=== PATIENT | male | born 1940 | race Caucasian/White ===

== ENCOUNTER 2018-04-18 03:40 | Inpatient (IN) | payer OTHER ==
[2018-04-18] MEDS ORDERED: MAGNE/ALUM HYDROXD 30 ML UCUP ONE (04:08)
[2018-04-18] MEDS ORDERED: LIDOCAINE VISCOUS 2% SOLN 15 ML UDC ONE (04:09)
[2018-04-18 04:25] LABS: Absolute Lymphocytes (CBC) 2.4 K/uL (0.7-4.9); Absolute Monocytes 0.9 K/uL (0.1-1.3); Absolute Neutrophil 6.1 K/uL (1.8-8.0); Basophils % 0.6 % (0-1.3); Hematocrit 45.9 % (39.6-49.0); Lymphocytes % 24.9 % (15.3-44.8); MCH 29.2 pg (27.0-35.0); MCV 86.8 fL (80-100); MPV 8.3 fL (7.6-11.3); Monocytes % 9.1 % (3.3-12.3); RBC Red Blood Cell Count 5.29 M/uL (4.33-5.43)
[2018-04-18 04:38] LABS: Potassium 3.7 mEq/L (3.6-5.0)
[2018-04-18 04:45] LABS: Bilirubin Direct 0.1 mg/dL (0-0.2); Bilirubin Total 0.5 mg/dL (0.3-1.2)
[2018-04-18] MEDS ORDERED: NA CHLORIDE 0.9% 500 ML ONE (05:25)
[2018-04-18 06:36] LABS: Urine Blood NEGATIVE (NEG); Urine Glucose NEGATIVE (NEG); Urine Protein NEGATIVE (NEG); Urine pH 5.5 (5.0-7.0)
[2018-04-18 06:45] LABS: Urine Bacteria NONE SEEN /HPF (NONE SEEN); Urine Culture Reflex Order NOT NEEDED; Urine RBC <5 /HPF (NONE SEEN)
--- NOTE | 2018-04-18 06:49 | EDPHYS ---
Physician Documentation [facility] Name: Azam Lee Age: 77 yrs Sex: Male : 1940 Arrival Date: 04/18/2018 Time: 03:41 Bed 8 Private MD: Blaire Mclaughlin F ED Physician Blayne Perez HPI: 04/18 04:18 This 77 yrs old Male presents to ER via Ambulatory with complaints of rn Abdominal Pain. 04:18 The patient presents with abdominal pain in the epigastric area. Onset: The rn symptoms/episode began/occurred 2 hour(s) ago. The symptoms do not radiate. Associated signs and symptoms: Pertinent negatives: nausea and vomiting, anorexia, blood in stools, chest pain, constipation, diarrhea, dysuria, fever, shortness of breath, vomiting, vomiting blood. The symptoms are described as achy. Severity of pain: At its worst the pain was moderate in the emergency department the pain has improved. The patient has not experienced similar symptoms in the past. Historical: - Allergies: 03:56 No Known Allergies; fc - Home Meds: 03:56 levothyroxine 50 mcg tab 1 tab once daily [Active]; amlodipine 5 mg tab 1 tab once fc daily [Active]; lisinopril-hydrochlorothiazide 20-12.5 mg oral tab 1 tab once daily [Active]; atorvastatin 80 mg oral tab 1 tab once daily [Active]; - PMHx: 03:56 High Cholesterol; Hypertension; Hypothyroidism; fc - PSHx: 03:56 Appendectomy; hand surg; fc - Immunization history:: Last tetanus immunization: up to date. - Social history:: Smoking status: Patient/guardian denies using tobacco, Patient/guardian denies using alcohol, street drugs. - Ebola Screening: : Patient negative for fever greater than or equal to 101.5 degrees Fahrenheit, and additional compatible Ebola Virus Disease symptoms Patient denies exposure to infectious person Patient denies travel to an Ebola-affected area in the 21 days before illness onset. - Family history:: not pertinent. - Hospitalizations: : No recent hospitalization is reported. ROS: 04:18 Constitutional: Negative for fever, chills, and weight loss, Eyes: Negative for injury, rn pain, redness, and discharge, Neck: Negative for injury, pain, and swelling, Cardiovascular: Negative for chest pain, palpitations, and edema, Respiratory: Negative for shortness of breath, cough, wheezing, and pleuritic chest pain, Abdomen/GI: + abd pain Back: Negative for injury and pain, MS/Extremity: Negative for injury and deformity, Skin: Negative for injury, rash, and discoloration, Neuro: Negative for headache, weakness, numbness, tingling, and seizure. Exam: 04:18 Constitutional: This is a well developed, well nourished patient who is awake, alert, rn and in no acute distress. Head/Face: Normocephalic, atraumatic. Eyes: Pupils equal round and reactive to light, extra-ocular motions intact. Lids and lashes normal. Conjunctiva and sclera are non-icteric and not injected. Cornea within normal limits. Periorbital areas with no swelling, redness, or edema. Cardiovascular: Regular rate and rhythm with a normal S1 and S2. No gallops, murmurs, or rubs. Normal PMI, no JVD. No pulse deficits. Respiratory: Lungs have equal breath sounds bilaterally, clear to auscultation and percussion. No rales, rhonchi or wheezes noted. No increased work of breathing, no retractions or nasal flaring. Abdomen/GI: soft, + epigastric and RUQ tenderness, no rebound, neg jones MS/ Extremity: Pulses equal, no cyanosis. Neurovascular intact. Full, normal range of motion. Equal circumference. Neuro: Awake and alert, GCS 15, oriented to person, place, time, and situation. Cranial nerves II-XII grossly intact. Motor strength 5/5 in all extremities. Sensory grossly intact. Vital Signs: 03:45 BP 172 / 81; Pulse 73; Resp 18; Temp 97.7(O); Pulse Ox 98% on R/A; Weight 90.72 kg (R); fc Height 6 ft. 0 in. (182.88 cm) (R); Pain 9/10; 05:12 BP 138 / 73; Pulse 61; Resp 18 S; Pulse Ox 94% on R/A; Pain 0/10; jd3 06:21 BP 159 / 76; Pulse 83; Resp 22 S; Temp 98.2(O); Pulse Ox 94% on R/A; Pain 0/10; bb 07:00 BP 162 / 90; Pulse 85; Resp 16 S; Temp 98.3(O); Pulse Ox 95% on R/A; Pain 0/10; aa5 07:30 BP 134 / 66; Pulse 70; Resp 16 S; Pulse Ox 95% on R/A; Pain 0/10; aa5 08:30 BP 125 / 70; Pulse 63; Resp 18 S; Pulse Ox 95% on R/A; Pain 0/10; aa5 09:20 BP 133 / 73; Pulse 60; Resp 16 S; Pulse Ox 98% on R/A; Pain 0/10; aa5 03:45 Body Mass Index 27.12 (90.72 kg, 182.88 cm) fc MDM: 03:43 Patient medically screened. rn 05:22 ED course: pain resolved. rn 06:48 Differential diagnosis: cholecystitis, Cholelithiasis, gastritis, gastroesophageal rn reflux disease. Data reviewed: vital signs, nurses notes, lab test result(s), radiologic studies, CT scan, and as a result, I will admit patient. Counseling: I had a detailed discussion with the patient and/or guardian regarding: the historical points, exam findings, and any diagnostic results supporting the discharge/admit diagnosis, lab results, radiology results, the need for further work-up and treatment in the hospital. Response to treatment: the patient's symptoms have markedly improved after treatment, and as a result, I will admit patient. Admission orders: after a detailed discussion of the patient's condition and case, the admit orders are written by me. 04/18 04:02 Order name: Basic Metabolic Panel; Complete Time: 05:18 04/18 04:02 Order name: CBC with Diff; Complete Time: 05:04/18 04:02 Order name: Creatinine for Radiology; Complete Time: 05:04/18 04:02 Order name: Hepatic Function; Complete Time: 05:18 04/18 04:02 Order name: Lipase; Complete Time: 05:18 04/18 04:02 Order name: Urine Microscopic Only; Complete Time: 06:46 04/18 04:02 Order name: CT Abd/Pelvis - W/Contrast rn 04/18 04:02 Order name: Troponin (emerg Dept Use Only); Complete Time: 05:18 04/18 06:27 Order name: Urine Dipstick--Ancillary (enter results); Complete Time: 06:38 oe 04/18 06:52 Order name: US Abdomen Limited fc 04/18 04:02 Order name: IV Saline Lock; Complete Time: 04:03 rn 04/18 04:02 Order name: Labs collected and sent; Complete Time: 04:05 rn 04/18 04:02 Order name: Urine Dipstick-Ancillary (obtain specimen); Complete Time: 06:24 rn 04/18 04:02 Order name: EKG; Complete Time: 04:03 rn 04/18 04:02 Order name: EKG - Nurse/Tech; Complete Time: 04:02 rn Administered Medications: 04:05 Drug: GI Cocktail without - (Maalox Suspension 30 ml, Lidocaine Liquid 2 % 15 bb ml) Route: PO; 05:22 Follow up: Response: No adverse reaction; Marked relief of symptoms jd3 05:28 Drug: NS 0.9% 500 ml Route: IV; Rate: bolus; Site: right antecubital; bb 06:22 Follow up: IV Status: Completed infusion; IV Intake: 500ml bb 06:51 CANCELLED (Duplicate Order): Rocephin - (cefTRIAXone) 1 grams IVPB once over 30 mins; fc (mix in 50 mL NS) 06:54 Drug: Flagyl 500 mg {Note: given by Rena ADAMS.} Volume: 100 ml; Route: IVPB; Rate: 200 jd3 ml/hr; Infused Over: 30 mins; Site: right antecubital; 07:15 Follow up: Response: No adverse reaction aa5 08:00 Follow up: Response: No adverse reaction; IV Status: Completed infusion aa5 06:54 Drug: Rocephin 1 grams {Note: given by Rena ADAMS.} Route: IV; Rate: calculated rate; jd3 Site: right antecubital; 07:00 Follow up: Response: No adverse reaction aa5 Disposition: 04/18/18 06:49 Hospitalization ordered by Blaire Mclaughlin for Inpatient Admission. Preliminary diagnosis is Cholecystitis, unspecified. - Bed requested for Telemetry/MedSurg (Inpatient). - Status is Inpatient Admission. aa5 - Condition is Stable. - Problem is new. - Symptoms have improved. UTI on Admission? No Signatures: Dispatcher [employer] Gina Moore RN RN dw Rita Cobb, RN RN fc Rena Love, RN RN bb Blayne Perez MD MD rn Calderon, Audri, RN RN aa5 Reginald Hernandez, RN RN jd3 Corrections: (The following items were deleted from the chart) 06:51 06:48 Rocephin - (cefTRIAXone) 1 grams IVPB once over 30 mins; (mix in 50 mL NS) fc ordered. rn 08:47 06:49 Hospitalization Ordered by Blaire Mclaughlin MD for Inpatient Admission. Preliminary dw diagnosis is Cholecystitis, unspecified. Bed requested for Telemetry/MedSurg (Inpatient). Status is Inpatient Admission. Condition is Stable. Problem is new. Symptoms have improved. UTI on Admission? No. rn 09:40 08:47 04/18/2018 06:49 Hospitalization Ordered by Blaire Mclaughlin MD for Inpatient aa5 Admission. Preliminary diagnosis is Cholecystitis, unspecified. Bed requested for Telemetry/MedSurg (Inpatient). Status is Inpatient Admission. Condition is Stable. Problem is new. Symptoms have improved. UTI on Admission? No. dw
--- NOTE | 2018-04-18 06:49 | ER ---
Nurse's Notes [facility] Name: Azam Lee Age: 77 yrs Sex: Male : 1940 Arrival Date: 04/18/2018 Time: 03:41 Bed 8 Private MD: Blaire Mclaughlin F Diagnosis: Cholecystitis, unspecified Presentation: 04/18 03:45 Presenting complaint: Patient states: that he was sleeping and at 0200 he was woke up fc by severe upper abd pain. Denies any nausea, vomiting or shortness of breath. Transition of care: patient was not received from another setting of care. Onset of symptoms was April 18, 2018 at 02:00. Risk Assessment: Do you want to hurt yourself or someone else? Patient reports no desire to harm self or others. Initial Sepsis Screen: Does the patient meet any 2 criteria? No. Patient's initial sepsis screen is negative. Does the patient have a suspected source of infection? No. Patient's initial sepsis screen is negative. Care prior to arrival: None. 03:45 Method Of Arrival: Ambulatory 03:45 Acuity: GERALDO 3 fc Historical: - Allergies: 03:56 No Known Allergies; fc - Home Meds: 03:56 levothyroxine 50 mcg tab 1 tab once daily [Active]; amlodipine 5 mg tab 1 tab once fc daily [Active]; lisinopril-hydrochlorothiazide 20-12.5 mg oral tab 1 tab once daily [Active]; atorvastatin 80 mg oral tab 1 tab once daily [Active]; - PMHx: 03:56 High Cholesterol; Hypertension; Hypothyroidism; fc - PSHx: 03:56 Appendectomy; hand surg; fc - Immunization history:: Last tetanus immunization: up to date. - Social history:: Smoking status: Patient/guardian denies using tobacco, Patient/guardian denies using alcohol, street drugs. - Ebola Screening: : Patient negative for fever greater than or equal to 101.5 degrees Fahrenheit, and additional compatible Ebola Virus Disease symptoms Patient denies exposure to infectious person Patient denies travel to an Ebola-affected area in the 21 days before illness onset. - Family history:: not pertinent. - Hospitalizations: : No recent hospitalization is reported. Screenin:45 Abuse screen: Denies threats or abuse. Nutritional screening: No deficits noted. fc Tuberculosis screening: No symptoms or risk factors identified. Fall Risk None identified. Assessment: 03:50 General: Appears in no apparent distress. Behavior is calm, cooperative. Pain: bb Complains of pain in right upper quadrant Pain does not radiate. Quality of pain is described as burning, Pain began suddenly, Is continuous. Neuro: Level of Consciousness is awake, alert, obeys commands, Oriented to person, place, time, situation. Cardiovascular: Heart tones S1 S2 present Capillary refill < 3 seconds Patient's skin is warm and dry. Pulses are palpable in right radial artery and left radial artery Edema is absent. Rhythm is sinus arrythmia. Respiratory: Airway is patent Respiratory effort is even, unlabored, Respiratory pattern is regular, Breath sounds are clear bilaterally. GI: Abdomen is round Bowel sounds present X 4 quads. Abd is soft X 4 quads Abdomen is tender to palpation in right upper quadrant Patient currently denies diarrhea, nausea, vomiting. Derm: Skin is pink, warm \T\ dry. Musculoskeletal: Circulation, motion, and sensation intact. 05:13 Reassessment: Patient appears in no apparent distress at this time. Patient and/or jd3 family updated on plan of care and expected duration. Pain level reassessed. Patient is alert, oriented x 3, equal unlabored respirations, skin warm/dry/pink. Patient states feeling better. 06:12 Reassessment: Patient and/or family updated on plan of care and expected duration. Pain bb level reassessed. pt to CT scan via stretcher accompanied by voip technician. 07:00 General: Appears comfortable, Behavior is calm, cooperative. Pain: Denies pain. Neuro: aa5 Level of Consciousness is awake, alert, obeys commands, Oriented to person, place, time, situation. Cardiovascular: Heart tones S1 S2 present Rhythm is regular. Respiratory: Airway is patent Respiratory effort is even, unlabored, Respiratory pattern is regular, symmetrical, Breath sounds are clear bilaterally. GI: Abdomen is round non-distended, Bowel sounds present X 4 quads. Abd is soft X 4 quads Abdomen is tender to palpation in right upper quadrant. : No signs and/or symptoms were reported regarding the genitourinary system. EENT: No signs and/or symptoms were reported regarding the EENT system. Derm: Skin is pink, warm \T\ dry. Musculoskeletal: Range of motion: intact in all extremities. 07:00 Reassessment: Pt notified of wait time for US to be completed and estimated wait for aa5 room assignment after US is completed. . 07:40 Reassessment: Patient and/or family updated on plan of care and expected duration. Pain aa5 level reassessed. Patient is alert, oriented x 3, equal unlabored respirations, skin warm/dry/pink. Patient denies pain at this time. 07:51 Reassessment: US at bedside . aa5 08:15 Reassessment: Patient and/or family updated on plan of care and expected duration. Pain aa5 level reassessed. Patient is alert, oriented x 3, equal unlabored respirations, skin warm/dry/pink. Patient denies pain at this time. 09:34 Reassessment: Patient is alert, oriented x 3, equal unlabored respirations, skin aa5 warm/dry/pink. Vital Signs: 03:45 BP 172 / 81; Pulse 73; Resp 18; Temp 97.7(O); Pulse Ox 98% on R/A; Weight 90.72 kg (R); fc Height 6 ft. 0 in. (182.88 cm) (R); Pain 9/10; 05:12 BP 138 / 73; Pulse 61; Resp 18 S; Pulse Ox 94% on R/A; Pain 0/10; jd3 06:21 BP 159 / 76; Pulse 83; Resp 22 S; Temp 98.2(O); Pulse Ox 94% on R/A; Pain 0/10; bb 07:00 BP 162 / 90; Pulse 85; Resp 16 S; Temp 98.3(O); Pulse Ox 95% on R/A; Pain 0/10; aa5 07:30 BP 134 / 66; Pulse 70; Resp 16 S; Pulse Ox 95% on R/A; Pain 0/10; aa5 08:30 BP 125 / 70; Pulse 63; Resp 18 S; Pulse Ox 95% on R/A; Pain 0/10; aa5 09:20 BP 133 / 73; Pulse 60; Resp 16 S; Pulse Ox 98% on R/A; Pain 0/10; aa5 03:45 Body Mass Index 27.12 (90.72 kg, 182.88 cm) ED Course: 03:41 Patient arrived in ED. am2 03:41 Blaire Mclaughlin MD is Private Physician. am2 03:43 Blayne Perez MD is Attending Physician. rn 03:45 Arm band placed on Patient placed in an exam room, on a stretcher. fc 03:45 Patient has correct armband on for positive identification. Placed in gown. Bed in low fc position. Call light in reach. quality assurance monitor on. Pulse ox on. NIBP on. 03:45 No provider procedures requiring assistance completed. fc 03:53 Triage completed. fc 03:55 Inserted saline lock: 20 gauge in right antecubital area, using aseptic technique. jd3 Blood collected. placed by Rena ADAMS. 04:03 EKG done, by ED staff, reviewed by Blayne Perez MD. jd3 04:23 Oral contrast given. eh 05:11 Rena Love RN is Primary Nurse. bb 05:29 Warm blanket given. jd3 06:[address] via stretcher. eh 06:11 CT completed. Patient tolerated procedure well. Patient moved back from CT. eh 06:16 CT Abd/Pelvis - W/Contrast In Process Unspecified. EDMS 06:49 Blaire Mclaughlin MD is Hospitalizing Provider. rn 07:44 Ultrasound completed. Patient tolerated well. ap2 09:35 Patient admitted, IV remains in place. aa5 Administered Medications: 04:05 Drug: GI Cocktail without - (Maalox Suspension 30 ml, Lidocaine Liquid 2 % 15 bb ml) Route: PO; 05:22 Follow up: Response: No adverse reaction; Marked relief of symptoms jd3 05:28 Drug: NS 0.9% 500 ml Route: IV; Rate: bolus; Site: right antecubital; bb 06:22 Follow up: IV Status: Completed infusion; IV Intake: 500ml bb 06:51 CANCELLED (Duplicate Order): Rocephin - (cefTRIAXone) 1 grams IVPB once over 30 mins; fc (mix in 50 mL NS) 06:54 Drug: Flagyl 500 mg {Note: given by Rena ADAMS.} Volume: 100 ml; Route: IVPB; Rate: 200 jd3 ml/hr; Infused Over: 30 mins; Site: right antecubital; 07:15 Follow up: Response: No adverse reaction aa5 08:00 Follow up: Response: No adverse reaction; IV Status: Completed infusion aa5 06:54 Drug: Rocephin 1 grams {Note: given by Rena ADAMS.} Route: IV; Rate: calculated rate; jd3 Site: right antecubital; 07:00 Follow up: Response: No adverse reaction aa5 Intake: 06:22 IV: 500ml; Total: 500ml. rosa Outcome: 06:49 Decision to Hospitalize by Provider. rn 09:34 Admitted to Med/surg accompanied by tech, via wheelchair, with chart, Report called to aa5 ANGIE Diaz 09:34 Condition: stable 09:34 Instructed on the need for admit, Demonstrated understanding of instructions. 09:40 Patient left the ED. aa5 Signatures: Dispatcher [employer] EDMS Wisam Flores Felicia RN RN Rena Noriega RN RN bb Nieto, Roman, MD MD rn Calderon, Audri, RN RN aa5 Moreno, Amanda am2 Davies, Jonathon, RN RN jd3 Pena, Abigail ap2 Corrections: (The following items were deleted from the chart) 04:03 04:03 EKG done, jroverto jd3 04:10 04:03 Inserted saline lock: 20 gauge in right antecubital area, using aseptic jd3 technique. Blood collected. placed by Rena de la rosa
[2018-04-18] MEDS ORDERED: CEFTRIAXONE/SWI 1gm 1 GM/10 ML SYR ONE (06:55)
[2018-04-18] MEDS ORDERED: METRONIDAZOLE 500mg IVPB 500 MG/100 ML BAG IV ONE (06:55)
--- NOTE | 2018-04-18 09:09 | EKG ---
Test Date: 2018-04-18 Test Time: 03:59:01 Asphalt Tile Floor Layer: SUSAN MEASUREMENT RESULTS: Intervals: Rate: 63 LA: 190 QRSD: 88 QT: 400 QTc: 409 [place]: P: 52 LA: 190 QRS: 34 T: 17 INTERPRETIVE STATEMENTS: Sinus rhythm with marked sinus arrhythmia Otherwise normal ECG Compared to ECG 02/07/2005 15:24:00 Sinus bradycardia no longer present Electronically Signed On 04-18-18 09:08:23 CDT by Giuseppe Montes De Oca
[2018-04-18] MEDS ORDERED: MORPHINE 4 MG/ML SYR IV PRN ×2 (11:05→15:11)
[2018-04-18] MEDS: D5 0.45 NS 1,000 ML IV SCH ×2 (11:05→18:18)
[2018-04-18] MEDS ORDERED: ONDANSETRON 4 MG/2 ML VIAL IV PRN (11:05)
--- NOTE | 2018-04-18 11:31 | RAD REPORT ---
EXAM DESCRIPTION: CT - Abdomen Pelvis W Contrast - 04/18/2018 7:10 am CLINICAL HISTORY: Abdominal pain. Right upper quadrant pain COMPARISON: None. TECHNIQUE: Computed axial tomography of the abdomen and pelvis was obtained. 100 cc Isovue-300 is ad ministered intravenously. Oral contrast was given.A preliminary report was generated by [employer] and reviewed prior to this dictation All CT scans are performed using dose optimization technique as appropriate and may include automated exposure control or mA/KV adjustment according to patient size. FINDINGS: the gallbladder wall is thickened with stranding within the adjacent fat. The liver, spleen, pancreas, and adrenals appear unremarkable. Small parapelvic renal cysts are prese nt. A thickened appendix is not seen. Diverticula stem from the colon without evidence of diverticulitis. A 3.1 centimeter infrarenal abdominal aneurysm is present. 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 The prostate gland is mildly enlarged. A right inguinal hernia contains fat Spondylosis involves lumbar spine resulting in spinal stenosis IMPRESSION: Gallbladder wall thickening with stranding within the adjacent fat probably indicating cholecystitis A 3.1 centimeter infrarenal abdominal aneurysm is present. 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
--- NOTE | 2018-04-18 11:32 | RAD REPORT ---
EXAM DESCRIPTION: US - Abdomen Exam Limited - 04/18/2018 8:08 am CLINICAL HISTORY: Abdominal pain. COMPARISON: None. FINDINGS: The gallbladder wall is thickened measuring 8 millimeters. . A gallstone is not seen. The biliary tree is normal caliber. IMPRESSION: Thickening of the gallbladder wall may indicate cholecystitis
--- NOTE | 2018-04-18 12:06 | P.HP ---
Date of Service: 04/18/18 PC:This 77-year-old male presented emergency room with severe right upper quadrant abdominal pain for diagnosis and treatment. HPC: Patient was woke up by a severe right upper quadrant abdominal pain early this morning. Pain was unrelenting. Describes it as severe, radiating into his back. Could not get relief and came to the emergency room for evaluation PMH: Hypertension, hypercholesterolemia PSHx: Previous appendectomy, hand surgery SOC: no known allergies, medications reviewed, also takes saw milena SYS REVIEW: No cough, wheeze, shortness of breath. No chest pain or palpitations. Has early signs of prostatism. Has some hesitancy, weak stream, and sense of urgency. Takes over the counter medication for this O/E awake alert comfortable at the moment HEENT: Not jaundiced Chest: Chest movement equal bilaterally ABD: mild tenderness in the right upper Quadrant LOCO: intact DATA: has documented gallstones IMPRESSION: acute cholecystitis with cholelithiasis PLAN: I will take him to the operating room for laparoscopic possible open cholecystectomy with intraoperative cholangiogram. The risks of this procedure have been discussed. The possibility of bleeding, and infection, injury to bile ducts blood vessels and intestines has been described. The possible need for an open and/or further surgeries and procedures have been discussed. The fact he may not be able to travel has also been explained. He understands and wants us to proceed. A
[2018-04-18] MEDS ORDERED: Ringers Lactate 1,000 ML IV ONE (12:43)
[2018-04-18] MEDS ORDERED: BUPIVACAINE 0.5% Inj,MDV 50 mL VIAL ONE (12:58)
[2018-04-18] MEDS ORDERED: SUCCINYLCHOLINE 20 MG/ML (10 ML) IV ONE (13:24)
[2018-04-18] MEDS ORDERED: FENTANYL CITR 250 MCG/5 ML ONE (13:27)
[2018-04-18] MEDS ORDERED: MIDAZOLAM HCL 2 MG/2 ML INJ ONE (13:27)
[2018-04-18] MEDS ORDERED: PROPOFOL 200 MG/20 ML VIAL IV ONE (13:27)
[2018-04-18] MEDS ORDERED: ROCURONIUM 50 MG/5 ML VIAL IV ONE (13:27)
[2018-04-18] MEDS ORDERED: GLYCOPYRROLATE 0.2 MG/ML SYR ONE (14:26)
[2018-04-18] MEDS ORDERED: NEOSTIGMINE 1 MG/ML -5 ML SYRINGE ONE (14:26)
--- NOTE | 2018-04-18 14:36 | P.OP ---
Preoperative diagnosis: acute on chronic cholecystitis with cholelithiasis he Postoperative diagnosis: The same Primary procedure: Laparoscopic cholecystectomy Secondary procedure: Cholangiogram Anesthesia: General Estimated blood loss: Less than 20 cc Specimen: 1 gallbladder and contents Operative Technique: The patient was brought to the operating room placed supine on the table. After the induction of adequate general endotracheal anesthesia, the area of the abdomen is prepped with a DuraPrep solution, and draped in the usual aseptic manner. A subumbilical incision was made. This brought down through the skin and subcutaneous tissue. The Visiport was used to enter the peritoneal cavity and created pneumoperitoneum to approximately 12 mm of mercury. Under direct vision a 5 mm trocar was placed in the upper midline, and 2 other 5 mm trocars on the right lateral side. The patient's head was then elevated and rolled towards the blanchard grinder operator's side. We could see a distended and inflamed gallbladder. The colon abutted up to the edge of the gallbladder. There were adhesions of the omentum to the gallbladder itself and the superior portion of the liver. These were taken down using blunt sharp dissection. We were now able to visualize the gallbladder.. A grasper was placed on the fundus of the gallbladder. Another 1 was placed down by Ankush's pouch. Applying lateral traction we were able to dissect and expose the cystic duct and artery. The fat in this area was very thin and friable. There was some small amount of bleeding in this area that was controlled using electro cautery and some judiciously placed clips. Having obtained the critical view structures were then identified. The artery was dealt with 1st. It was clipped and divided in the usual manner. A clip was then placed between the gallbladder and the cystic duct. An opening was made into the cystic duct. We attempted then to pass the cholangiocath into the cystic duct. Having place the catheter into the cystic duct, a cholangiogram was obtained under fluoroscopy. It showed good flow contrast into the duodenum, no filling defects were not detected. The catheter was then removed.. Clips were now placed on the distal portion of the cystic duct. The cystic duct was then divided. The gallbladder was now dissected free from the liver bed, placed into an Endo-Catch, and brought out through the umbilical trocar site. The gallbladder fossa was inspected to ensure adequate hemostasis. It was irrigated with a saline solution and the irrigant aspirated from the peritoneal cavity. 0.25% Marcaine was aerosolized into the right upper quadrant and the gallbladder fossa. The umbilical trocar site was now approximated with an Endo Close and an absorbable sutures. The patient does have an umbilical hernia in this area. We were able to partially close this defect however the hernia itself was left and can be addressed at a later time. The pneumoperitoneum was then collapsed, the suture tied, and best applied to the skin. A further 0.25% Marcaine was injected around are incision sites. At the end of the procedure the patient was in a stable condition when sent to the recovery room. Needle sponge instrument count were correct. 1 specimen was sent for histopathology.
[2018-04-18] MEDS ORDERED: NALOXONE 0.4 MG/ML VIAL ONE (14:37)
[2018-04-18] MEDS ORDERED: HYDROCODONE/APAP 7.5/325 MG TAB PO PRN (15:11)
--- NOTE | 2018-04-18 15:22 | RAD REPORT ---
EXAM DESCRIPTION: RADCholangiogram Oper-Xray Or04/18/2018 2:54 pm CLINICAL HISTORY: Abdominal pain FINDINGS: The examination was performed by Dr. Lemus. The cystic duct was cannulated and contrast administered. A spot intraoperative fluoroscopic image was obtained. Contrast flowed into the duodenum. The biliary tree is normal caliber without a filling defect seen.
[2018-04-18] MEDS ORDERED: METRONIDAZOLE 500mg IVPB 500 MG/100 ML BAG IV SCH (17:00)
--- NOTE | 2018-04-18 17:06 | PN ---
Subjective: A 77-year-old male presented to the emergency room with right upper quadrant pain. His workup showed acute cholecystitis. At this time, he went to the operating room. Past Medical History: As per Dr. Burr's history and physical. Social History: As per Dr. Burr's history and physical. Family History: As per Dr. Burr's history and physical. Medications: As per Dr. Burr's history and physical. Allergies: PER DR. BURR'S HISTORY AND PHYSICAL. Assessment And Plan: The patient's labs have been noted and the workup has been noted. We will care for him after his surgery for acute cholecystitis. KAMAR/MODJese Voice ID: [id number] Report ID: [id number]
[2018-04-19] MEDS: D5 0.45 NS 1,000 ML IV SCH (02:24)
[2018-04-19] MEDS ORDERED: CEFTRIAXONE/SWI 1gm 1 GM/10 ML SYR IV SCH (09:00)
--- NOTE | 2018-04-19 14:32 | PN ---
Subjective: The patient is doing well. He had his gallbladder removed with laparoscopy. He has no new complaints. He is passing gases and he tolerated liquid diet. Objective: Vital Signs: Blood pressure 145/65, pulse 58, temperature 98.1. Heart: Regular rate and rhythm. Chest: Clear to auscultation. Abdomen: Soft, benign. Bowel sounds are hypoactive, but heard. Neurological: Alert, oriented, nonfocal. Grossly intact. Assessment And Plan: Status post laparoscopic cholecystectomy for cholecystitis. The patient is rec overing well, tolerating p.o. intake. We will continue on liquid diet and his discharge is according to Surgery. If it is okay with them, we can go ahead and discharge the patient. MFS/MODL Voice ID: [id number] Report ID: [id number]
[2018-04-19] MEDS ORDERED: TAMSULOSIN 0.4 MG SR CAP PO SCH (21:00)
== END 2018-04-19 14:38 | disposition home or self-care (01) | DRG 419 ==
LOC: ER 03:40 → ERHOLD 06:55 → 2ND 09:34
PROVIDERS: ADMIT Internal Medicine; ATTEND Internal Medicine
PROC: 0FT44ZZ Resection of Gallbladder, Percutaneous Endoscopic Approach (ICD-10-PCS; principal; 2018-04-18 13:30)
DX: K80.12 Calculus of gallbladder with acute and chronic cholecystitis without obstruction (principal)
CPT/HCPCS: 36415; 74177; 74300; 76705; 80048; 80076; 81003; 81015; 83690; 84484; 85025; 88304; 93005; 96361; 96365; 96375; 99285; J0330; J0696; J2250; J2310; J2710; Q9967

== ENCOUNTER 2019-10-20 09:54 | Inpatient (IN) | payer OTHER ==
--- NOTE | 2019-10-20 10:54 | RAD REPORT ---
EXAM DESCRIPTION: RAD - Chest Single View - 10/20/2019 10:48 am CLINICAL HISTORY: shortness of breath Chest pain. COMPARISON: Chest Pa And Lat (2 Views) dated 02/03/2017; CHEST PA AND LAT 2 VIEW dated 04/29/2012; EDUARDO ST PA AND LAT 2 VIEW dated 10/03/2009; CHEST PA AND LAT 2 VIEW dated 02/07/2005 FINDINGS: Portable technique limits examination quality. The lungs are mildly emphysematous but grossly clear. The heart is normal in size. No displaced fract ures. IMPRESSION: No acute intrathoracic process suspected.
[2019-10-20] MEDS ORDERED: LEVALBUTEROL 1.25 MG/3 ML NEB ONE (10:58)
[2019-10-20 11:16] LABS: Basophils % 0.9 % (0-1.3); Hematocrit 42.7 % (39.6-49.0); Lymphocytes % 8.6 % (15.3-44.8); MPV 8.3 fL (7.6-11.3); RBC Red Blood Cell Count 4.97 M/uL (4.33-5.43)
[2019-10-20 11:18] LABS: Protime INR 1.09
[2019-10-20 11:30] LABS: Albumin 3.3 g/dL (3.4-5.0); Bilirubin Direct 0.2 mg/dL (0-0.2); Bilirubin Total 0.7 mg/dL (0.2-1.0); Magnesium 2.3 mg/dL (1.8-2.4); Potassium 3.6 mmol/L (3.5-5.1); Protein, Total 6.7 g/dL (6.4-8.2); Troponin (Emerg Dept Use Only) 0.04 ng/mL (0.0-0.045)
--- NOTE | 2019-10-20 12:21 | RAD REPORT ---
EXAM DESCRIPTION: CT - Chest For Pe Angio - 10/20/2019 12:01 pm CLINICAL HISTORY: sob COMPARISON: None. TECHNIQUE: Dynamically enhanced axial 3 mm thick images of the chest were obtained during administra tion of <100> mL Isovue 370 IV contrast. Coronal and oblique reconstruction images were generated and reviewed. Exam utilizes a protocol for optimal evaluation of pulmonary arterial tree. Maximum intensity projections 3D imaging was utilized All CT scans are performed using dose optimization technique as appropriate and may include automated exposure control or mA/KV adjustment according to patient size. FINDINGS: Thrombus is present within the distal left main pulmonary artery extending into left upper and left lower lobe pulmonary arteries. No thrombus noted within the main and right main pulmonary arteries. Thrombus is seen within the right upper lobe, right middle lobe and right lower lobe pulmonary arteri es. A thoracic aortic aneurysm is not noted. A pleural effusion is not seen. A pericardial effusion is not seen. 3.4 centimeter right lower lobe opacity extends to the pleura IMPRESSION: Moderately extensive bilateral pulmonary emboli 3.4 centimeter right lower lobe opacity may represent an infarct
[2019-10-20] MEDS ORDERED: ENOXAPARIN 100 MG/ML SYR SQ ONE (13:28)
--- NOTE | 2019-10-20 13:38 | ER ---
Nurse's Notes [facility] Name: Azam Lee Age: 79 yrs Sex: Male : 1940 Arrival Date: 10/20/2019 Time: 09:57 Bed 15 Private MD: Blaire Mclaughlin F Diagnosis: Pulmonary embolism;Hypoxia Presentation: 10/20 10:08 Presenting complaint: Patient states: Thursday just all of a sudden i couldn't walk up tw2 the stairs without getting short of breath, which is unusual, i can go maybe 100 feet and then i have to stop and take some deep breaths. Transition of care: patient was not received from another setting of care. Onset of symptoms was October 20, 2019. Risk Assessment: Do you want to hurt yourself or someone else? Patient reports no desire to harm self or others. Initial Sepsis Screen: Does the patient meet any 2 criteria? HR > 90 bpm. No. Patient's initial sepsis screen is negative. Does the patient have a suspected source of infection? No. Patient's initial sepsis screen is negative. Care prior to arrival: None. 10:08 Method Of Arrival: Ambulatory tw2 10:08 Acuity: GERALDO 2 tw2 10:17 Presenting complaint:. Note pt denies cough congestion. tw2 Triage Assessment: 10:17 General: Appears well groomed, Behavior is calm, cooperative, appropriate for age. tw2 Pain: Denies pain. Respiratory: Reports shortness of breath at rest on exertion Onset: The symptoms/episode began/occurred since Thursday, the patient has moderate shortness of breath. Historical: - Allergies: 10:16 No Known Allergies; tw2 - Home Meds: 10:16 amlodipine 5 mg tab 1 tab once daily [Active]; atorvastatin 80 mg Oral tab 1 tab once tw2 daily [Active]; levothyroxine 50 mcg tab 1 tab once daily [Active]; lisinopril-hydrochlorothiazide 20-12.5 mg Oral tab 1 tab once daily [Active]; Flomax 0.4 mg Oral cp24 1 cap once daily [Active]; - PMHx: 10:16 Hypothyroidism; Hypertension; High Cholesterol; tw2 - PSHx: 10:16 hand surg, right; Appendectomy; tw2 - Immunization history:: Adult Immunizations. - Social history:: Smoking status: . - Ebola Screening: : Patient denies travel to an Ebola-affected area in the 21 days before illness onset. Screenin:29 Abuse screen: Denies threats or abuse. Denies injuries from another. Nutritional bp screening: No deficits noted. Tuberculosis screening: No symptoms or risk factors identified. Fall Risk None identified. Assessment: 10:28 General: SEE TRIAGE NOTE. Cardiovascular: Rhythm is sinus rhythm. Respiratory: Airway bp is patent Respiratory effort is even, labored, Breath sounds are coarse bilaterally. 11:02 Reassessment: ALL CURRENT ORDERS COMPLETED, RESULTS PENDING. bp 11:15 Reassessment: D-DIMER >440, PROVIDER NOTIFIED. bp 11:45 Reassessment: PT TO CT WITH TRAVELING ACCOUNTANT. bp 13:30 Reassessment: ADMIT IN PROCESS. bp 14:48 Reassessment: PT RETURNED FROM U/S. bp Vital Signs: 10:11 BP 123 / 75; Pulse 99; Resp 19; Temp 98.8(TE); Pulse Ox 89% on R/A; Weight 89.36 kg tw2 (R); Height 6 ft. 0 in. (182.88 cm); Pain 0/10; 11:01 BP 127 / 66; Pulse 90; Resp 20; Pulse Ox 98% on 10% Nebulizer Mask; bp 12:00 BP 126 / 63; Pulse 97; Resp 16; Pulse Ox 91% ; bp 13:00 BP 143 / 78; Pulse 103; Resp 18; Pulse Ox 90% on 2 lpm NC; bp 14:30 BP 158 / 73; Pulse 107; Resp 19; Temp 97.8; Pulse Ox 92% on 3 lpm NC; bp 10:11 Body Mass Index 26.72 (89.36 kg, 182.88 cm) tw2 10:11 pt placed on o2 via nc at 2L, at this time, 96% tw2 ED Course: 09:57 Patient arrived in ED. mr 09:57 Blaire Mclaughlin MD is Private Physician. mr 10:11 Triage completed. tw2 10:16 Arm band placed on. tw2 10:22 Markus Herrera PA is PHCP. [place] 10:22 Ron Velazquez MD is Attending Physician. jmm 10:28 Pedro Balderas, ANGIE is Primary Nurse. bp 10:29 Patient has correct armband on for positive identification. Bed in low position. Call bp light in reach. Side rails up X2. 10:51 EKG done, by quality control lab technician. reviewed by Markus ALFREDO. at1 10:54 XRAY Chest (1 view) In Process Unspecified. EDMS 10:59 Inserted saline lock: 20 gauge in right forearm, using aseptic technique. Blood bp collected. 11:00 Initial lab(s) drawn, by me, sent to lab. First set of blood cultures drawn by me. em1 11:26 Notified ED physician of a critical lab result(s). D-Dimer 7440. tw2 12:09 CT Chest For PE Angio In Process Unspecified. EDMS 13:36 Blaire Mclaughlin MD is Hospitalizing Provider. m 14:48 No provider procedures requiring assistance completed. Patient admitted, IV remains in bp place. Administered Medications: 11:00 Drug: Xopenex (3) 1.25 mg Route: Inhalation; bp 13:30 Drug: Lovenox 1 mg/kg Route: Sub-Q; Site: right lower abdomen; bp 14:12 Follow up: Response: No adverse reaction bp Outcome: 13:37 Decision to Hospitalize by Provider. jmm 14:37 Patient left the ED. ss 14:53 Admitted to Tele accompanied by tech, via wheelchair, room 201, with oxygen, with bp chart, Report called to BHARATI ADAMS 14:53 Condition: stable 14:53 Instructed on the need for admit. 15:01 Patient left the ED. bp Signatures: Dispatcher [employer] EDMS Markus Herrera PA PA jmm Yesica Esteves James em1 Blossom Lucas, RN RN ss Elinor Kumar, business office manager EKG Tat1 Smitha Waggoner, RN RN tw2 Pedro Balderas, RN RN bp Corrections: (The following items were deleted from the chart) 10:17 10:11 BP 123 / 75; Pulse 99bpm; Resp 19bpm; Pulse Ox 89% RA; Temp 98.8F Temporal; 89.36 tw2 kg Reported; Height 6 ft. 0 in.; BMI: 26.7; Pain 0/10; pt placed on o2 via nc at 2L, at this time.; tw2 10:52 10:08 Initial Sepsis Screen: Does the patient meet any 2 criteria? No. Patient's bp initial sepsis screen is negative. Does the patient have a suspected source of infection? No. Patient's initial sepsis screen is negative. tw2
--- NOTE | 2019-10-20 13:38 | EDPHYS ---
Physician Documentation [facility] Name: Azam Lee Age: 79 yrs Sex: Male : 1940 Arrival Date: 10/20/2019 Time: 09:57 Bed 15 Private MD: Blaire Mclaughlin F ED Physician Ron Velazquez HPI: 10/20 10:35 This 79 yrs old Male presents to ER via Ambulatory with complaints of jmm Shortness Of Breath. 10:35 The patient has shortness of breath with light activity. Onset: The symptoms/episode jmm began/occurred gradually, 2 day(s) ago. Duration: The symptoms are continuous. The patient's shortness of breath is aggravated by exertion. Associated signs and symptoms: Pertinent negatives: chest pain, non-productive cough, productive cough, diaphoresis, dizziness, fever, hemoptysis, loss of consciousness, numbness in extremities, vomiting. This is a 79 year old male with a history of hypothyroidism, htn, hlp that presents to the ED with complaints of shortness of breath on exertion. Symptoms began this past Thursday. Denies fever, chest pain. Historical: - Allergies: 10:16 No Known Allergies; tw2 - Home Meds: 10:16 amlodipine 5 mg tab 1 tab once daily [Active]; atorvastatin 80 mg Oral tab 1 tab once tw2 daily [Active]; levothyroxine 50 mcg tab 1 tab once daily [Active]; lisinopril-hydrochlorothiazide 20-12.5 mg Oral tab 1 tab once daily [Active]; Flomax 0.4 mg Oral cp24 1 cap once daily [Active]; - PMHx: 10:16 Hypothyroidism; Hypertension; High Cholesterol; tw2 - PSHx: 10:16 hand surg, right; Appendectomy; tw2 - Immunization history:: Adult Immunizations. - Social history:: Smoking status: . - Ebola Screening: : Patient denies travel to an Ebola-affected area in the 21 days before illness onset. ROS: 10:35 Constitutional: Negative for fever, chills, and weight loss, Cardiovascular: Negative jmm for chest pain, palpitations, and edema. 10:35 Abdomen/GI: Negative for abdominal pain, nausea, vomiting, diarrhea, and constipation, Back: Negative for injury and pain, Neuro: Negative for headache, weakness, numbness, tingling, and seizure. 10:35 Respiratory: Positive for shortness of breath. 10:35 All other systems are negative. Exam: 10:35 Constitutional: This is a well developed, well nourished patient who is awake, alert, jmm and in no acute distress. Head/Face: atraumatic. Eyes: EOMI, no conjunctival erythema appreciated ENT: Moist Mucus Membranes Neck: Trachea midline, Supple Chest/axilla: Normal chest wall appearance and motion. 10:35 Abdomen/GI: Non distended, soft Back: Normal ROM Skin: General appearance color normal MS/ Extremity: Moves all extremities, no obvious deformities appreciated, no edema noted to the lower extremities Neuro: Awake and alert, normal gait Psych: Behavior is normal, Mood is normal, Patient is cooperative and pleasant 10:35 Cardiovascular: Rate: normal, Rhythm: regular, Pulses: no pulse deficits are appreciated. 10:35 Respiratory: the patient does not display signs of respiratory distress, Respirations: normal, Breath sounds: are clear throughout. Vital Signs: 10:11 BP 123 / 75; Pulse 99; Resp 19; Temp 98.8(TE); Pulse Ox 89% on R/A; Weight 89.36 kg tw2 (R); Height 6 ft. 0 in. (182.88 cm); Pain 0/10; 11:01 BP 127 / 66; Pulse 90; Resp 20; Pulse Ox 98% on 10% Nebulizer Mask; bp 12:00 BP 126 / 63; Pulse 97; Resp 16; Pulse Ox 91% ; bp 13:00 BP 143 / 78; Pulse 103; Resp 18; Pulse Ox 90% on 2 lpm NC; bp 14:30 BP 158 / 73; Pulse 107; Resp 19; Temp 97.8; Pulse Ox 92% on 3 lpm NC; bp 10:11 Body Mass Index 26.72 (89.36 kg, 182.88 cm) tw2 10:11 pt placed on o2 via nc at 2L, at this time, 96% tw2 MDM: 10:27 Patient medically screened. [facility] 13:35 Data reviewed: vital signs, nurses notes. Counseling: I had a detailed discussion with [facility] the patient and/or guardian regarding: the historical points, exam findings, and any diagnostic results supporting the discharge/admit diagnosis, lab results, radiology results, the need for further work-up and treatment in the hospital. ED course: I discussed the patient with Dr. Lomas whom accepted admission. . 10/20 10:33 Order name: Basic Metabolic Panel; Complete Time: 11:31 [facility] 10/20 10:33 Order name: CBC with Diff; Complete Time: 11:31 [facility] 10/20 10:33 Order name: LFT's; Complete Time: 11:39 [facility] 10/20 10:33 Order name: Magnesium; Complete Time: 11:39 [facility] 10/20 10:33 Order name: NT PRO-BNP; Complete Time: 11:39 [facility] 10/20 10:33 Order name: PT-INR; Complete Time: 11:31 [facility] 10/20 10:33 Order name: Troponin (emerg Dept Use Only); Complete Time: 11:39 [facility] 10/20 10:33 Order name: XRAY Chest (1 view); Complete Time: 11:10 [facility] 10/20 10:33 Order name: D-Dimer; Complete Time: 11:31 [facility] 10/20 10:34 Order name: Blood Culture Adult (2) [facility] 10/20 13:46 Order name: Basic Metabolic Panel [facility] 10/20 13:46 Order name: Basic Metabolic Panel [facility] 10/20 13:46 Order name: CBC with Automated Diff [facility] 10/20 13:46 Order name: CBC with Automated Diff [facility] 10/20 10:33 Order name: EKG; Complete Time: 10:35 [facility] 10/20 10:33 Order name: Cardiac monitoring; Complete Time: 10:51 [facility] 10/20 10:33 Order name: EKG - Nurse/Tech; Complete Time: 11:00 [facility] 10/20 10:33 Order name: IV Saline Lock; Complete Time: 11:00 [facility] 10/20 10:33 Order name: Labs collected and sent; Complete Time: 11:00 [facility] 10/20 10:33 Order name: O2 Per Protocol; Complete Time: 10:51 [facility] 10/20 10:33 Order name: O2 Sat Monitoring; Complete Time: 10:51 [facility] 10/20 11:32 Order name: CT Chest For PE Angio; Complete Time: 13:17 [facility] 10/20 13:35 Order name: US Extremity Venous W Compression Ronald [facility] 10/20 13:46 Order name: Heart Healthy EDME 10/20 13:46 Order name: Echo with Doppler EDME 10/20 14:55 Order name: EDME Administered Medications: 11:00 Drug: Xopenex (3) 1.25 mg Route: Inhalation; bp 13:30 Drug: Lovenox 1 mg/kg Route: Sub-Q; Site: right lower abdomen; bp 14:12 Follow up: Response: No adverse reaction bp Disposition: 15:57 Co-signature as Attending Physician, Ron Velazquez MD I agree with the assessment and kdr plan of care. Disposition: 10/20/19 13:37 Hospitalization ordered by Blaire Mclaughlin for Inpatient Admission. Preliminary diagnosis are Pulmonary embolism, Hypoxia. - Bed requested for Telemetry/MedSurg (Inpatient). - Status is Inpatient Admission. bp - Condition is Stable. - Problem is new. - Symptoms have improved. UTI on Admission? No Signatures: Dispatcher [employer] [facility] Ron Velazquez MD MD [facility] Markus Herrera PA PA jmm Smirch, Shelby, RN RN Smitha Waggoner RN RN 2 Pedro Balderas RN RN Emilee Henderson Corrections: (The following items were deleted from the chart) 13:44 13:37 Hospitalization Ordered by Blaire Mclaughlin MD for Inpatient Admission. Preliminary eb diagnosis is Pulmonary embolism; Hypoxia. Bed requested for Telemetry/MedSurg (Inpatient). Status is Inpatient Admission. Condition is Stable. Problem is new. Symptoms have improved. UTI on Admission? No. amandeep 14:10 13:44 10/20/2019 13:37 Hospitalization Ordered by Blaire Mclaughlin MD for Inpatient eb Admission. Preliminary diagnosis is Pulmonary embolism; Hypoxia. Bed requested for Telemetry/MedSurg (Inpatient). Status is Inpatient Admission. Condition is Stable. Problem is new. Symptoms have improved. UTI on Admission? No. eb 14:37 14:10 10/20/2019 13:37 Hospitalization Ordered by Blaire Mclaughlin MD for Inpatient ss Admission. Preliminary diagnosis is Pulmonary embolism; Hypoxia. Bed requested for Telemetry/MedSurg (Inpatient). Status is Inpatient Admission. Condition is Stable. Problem is new. Symptoms have improved. UTI on Admission? No. eb 15:01 14:37 10/20/2019 13:37 Hospitalization Ordered by Blaire Mclaughlin MD for Inpatient bp Admission. Preliminary diagnosis is Pulmonary embolism; Hypoxia. Bed requested for Telemetry/MedSurg (Inpatient). Status is Inpatient Admission. Condition is Stable. Problem is new. Symptoms have improved. UTI on Admission? No. ss
[2019-10-20] MEDS ORDERED: ONDANSETRON 4 MG/2 ML VIAL IV PRN (13:40)
[2019-10-20] MEDS ORDERED: ACETAMINOPHEN 500 MG TAB PO PRN (13:40)
--- NOTE | 2019-10-20 14:41 | RAD REPORT ---
EXAM DESCRIPTION: US - Extrem Venous W Compress Ronald - 10/20/2019 2:35 pm CLINICAL HISTORY: PE Bilateral leg edema and swelling. COMPARISON: Chest For Pe Angio dated 10/20/2019 TECHNIQUE: Real-time sonographic interrogation of the left and right lower extremity deep venous sys tems was performed. FINDINGS: Thrombus is present in the right deep venous system from the femoral vein to the popliteal vein. No left-sided DVT evident. IMPRESSION: Positive for right-sided acute DVT.
--- NOTE | 2019-10-20 14:55 | EKG ---
Test Date: 2019-10-20 Test Time: 10:46:17 Fire Support Specialist: MICHELLE MEASUREMENT RESULTS: Intervals: Rate: 85 OK: 188 QRSD: 88 QT: 382 QTc: 454 [place]: P: 57 OK: 188 QRS: 56 T: 26 INTERPRETIVE STATEMENTS: Normal sinus rhythm Normal ECG Compared to ECG 04/18/2018 03:59:01 Sinus arrhythmia no longer present Electronically Signed On 10-20-19 14:55:00 WHEAT CLEANER by Giuseppe Montes De Oca
[2019-10-20 15:17] VITALS: BMI 26.7
[2019-10-20] MEDS ORDERED: ENOXAPARIN 100 MG/ML SYR SQ SCH (16:00)
[2019-10-20] MEDS: TAMSULOSIN 0.4 MG SR CAP PO SCH (20:37)
[2019-10-20] MEDS ORDERED: AMLODIPINE 5 MG TAB PO SCH (21:00)
[2019-10-20] MEDS: ATORVASTATIN 80 MG TAB PO SCH (21:31)
[2019-10-20] MEDS: LEVOTHYROXINE SOD 0.05 MG TABLET PO SCH (21:31)
--- NOTE | 2019-10-21 04:35 | HP ---
Date of Admission: 10/20/2019 History Of Present Illness: A -[id number] male, who presented to me with history of shortnes s of breath that had been about 3 days ago, which was acute for him happened all of a sudden. The pa noy states that he walked 20 to 25 feet. He was started getting short of breath which is very unus ual for him. He did not have any chest pain. No nausea, no vomiting. He voiced no other complaints . He gave history that he recently came back from a long flight from [place]. Review of Systems: Respiratory: As above. Cardiovascular: No complaints. Genitourinary: No complaints. Cardiovascular: No complaints. Gastrointestinal: No complaints. Neurological: No complaint. Past Medical History: 1.Hypertension. 2.Hypothyroidism. 3.Hyperlipidemia. 4.Chronic renal insufficiency from hypertension. 5.Erectile dysfunction. Social History: No smoking, alcohol, or IV drug abuse history. Family History: Noncontributing. Medications: Patient is on levothyroxine 50 mcg p.o. daily, Flomax 0.4 mg p.o. daily, lisinopril/hyd rochlorothiazide 20/12.5 mg p.o. daily, Cialis 20 mg p.o. daily p.r.n., amlodipine 5 mg p.o. daily, L ipitor, Atorvastatin 80 mg p.o. daily. Allergies: NO KNOWN DRUG ALLERGIES. Physical Examination: Vital Signs: Blood pressure 158/73, pulse 107, temperature 97.8. Heart: Regular rate and rhythm. Chest: Clear to auscultation. Abdomen: Soft, nontender. No hepatosplenomegaly. Bowel sounds are normoactive. Extremities: No edema. No cyanosis. Peripheral pulses are felt. Neurological: Alert and oriented, nonfocal. Grossly intact. Diagnostic Data: Chest x-ray, no acute intrathoracic process; however, his chest CAT scan showed mod erately extensive bilateral pulmonary emboli 3.4 cm right lower lobe opacity, may represent an infarc t. Vascular study on his lower extremities positive for right-sided acute DVT in the femoral vein. Electrocardiogram, normal sinus rhythm. CBC; white cell count 11.8, the rest is noted. PT/INR noted . D-dimer 7440. Chemistry, chloride 110, BUN 24, creatinine 1.27. GFR 55; glucose 151, this is non fasting. Alkaline phosphatase 118. BNP 1585. Albumin 3.3. Assessment And Plan: Acute deep vein thrombosis with acute pulmonary embolism, extensive. Patient i s being admitted because he had hypoxia also by pulse oximetry, so put him on oxygen protocol. Put h im on Lovenox 90 mg subcutaneous daily. We will continue his home medicines for chronic medical illn esses. Put the patient on telemetry and we will measure his pulse oximetry and once his room air pul se oximetry symptoms improved, we will consider discharging him. Meanwhile, follow up also his blood count and put him on his home medications as mentioned. Look orders for details. KAMAR/MODL Voice ID: [id number]
[2019-10-21 05:58] LABS: Potassium 3.8 mmol/L (3.5-5.1)
[2019-10-21] MEDS ORDERED: LEVOTHYROXINE SOD 0.05 MG TABLET PO SCH (06:00)
[2019-10-21 06:05] LABS: Absolute Lymphocytes (CBC) 1.5 K/uL (0.7-4.9); Basophils % 0.5 % (0-1.3); Hematocrit 37.2 % (39.6-49.0); MPV 8.4 fL (7.6-11.3); RBC Red Blood Cell Count 4.37 M/uL (4.33-5.43)
[2019-10-21] MEDS: RIVAROXABAN 15 MG TABLET PO SCH ×2 (08:37→21:04)
[2019-10-21] MEDS ORDERED: hydroCHLOROthiazide 12.5 MG CAP PO SCH (09:00)
[2019-10-21] MEDS ORDERED: ENOXAPARIN 100 MG/ML SYR SQ SCH (09:00)
[2019-10-21] MEDS ORDERED: ATORVASTATIN 80 MG TAB PO SCH (09:00)
[2019-10-21] MEDS ORDERED: HOME MED 1 EA UNK (Lisinopril/Hydrochlorothiazide [Lisinopril-Hctz 20-12.5 Mg Tab] 1 TAB) PO SCH (09:00)
[2019-10-21] MEDS ORDERED: lisinopriL 20 MG TAB PO SCH (09:00)
--- NOTE | 2019-10-21 09:58 | P.CNS ---
Date of Consult: 10/21/19 Reason for Consult: Shortness of breath Chief Complaint: Pulmonary emboli History of Present Illness: Patient is 79 years of age with a recent history of travel to [place] S developed sudden onset of shortness of breath for the past 2 days came into the emergency room was diagnosed to have bilateral pulmonary emboli and right-sided DVT there is no prior history of cardiopulmonary problems before history of hypertension otherwise his baseline he does really well Allergies No Known Allergies Allergy (Verified 10/20/19 15:30) Home Medications: Amlodipine Besylate 1 tab PO BEDTIME 04/18/18 Atorvastatin Calcium [Lipitor] 80 mg PO DAILY 04/18/18 Levothyroxine [Synthroid] 50 mcg PO [id number] 04/18/18 Lisinopril/Hydrochlorothiazide [Lisinopril-Hctz 20-12.5 mg Tab] 1 tab PO DAILY 04/18/18 Tamsulosin [Flomax*] 1 cap PO BEDTIME 10/20/19 - Past Medical/Surgical History Diabetic: No -: pneumonia -: high cholesterol -: hypertension -: hypothyroidism -: bph -: appendectomy -: hand sx - Family History Father Medical History: Lung disease Mother Medical History: Lung disease - Social History Alcohol use: Yes CD- Drugs: No Caffeine use: Yes Place of Residence: Home Review of Systems 10-point ROS is otherwise unremarkable Physical Examination Temp Pulse Resp BP Pulse Ox 98.9 F 78 21 H 129/60 93 10/21/19 08:00 10/21/19 08:37 10/21/19 08:00 10/21/19 08:37 10/21/19 08:00 General: Alert, Oriented x3 HEENT: Atraumatic Neck: Supple Respiratory: Clear to auscultation bilaterally, Diminished Cardiovascular: No edema, Regular rate/rhythm, Normal S1 S2 Gastrointestinal: Normal bowel sounds, Soft and benign, Non-distended Laboratory Data (last 24 hrs) 10/20/19 11:00: PT 12.8 H, INR 1.09 10/20/19 11:00: WBC 11.8 H, Hgb 14.3, Hct 42.7, Plt Count 182 10/20/19 11:00: Sodium 142, Potassium 3.6, BUN 24 H, Creatinine 1.27, Glucose 151 H, Magnesium 2.3, Total Bilirubin 0.7, AST 10 L, ALT 21, Alkaline Phosphatase 118 H - Problems (1) Pulmonary embolism and infarction Current Visit: Yes Status: Acute Plan: Patient is 79 years of age admitted with DVT and pulmonary emboli as currently stable vital signs are stable was hypoxic on admission will recheck is room-air pulse ox agree with Xarelto far now if he continues to remain in a hypoxic may have to consider thrombolytics therapy will check 2D echo the pressure is stable patient is on 3 blood pressure pills I have held the hydrochlorothiazide and Norvasc
--- NOTE | 2019-10-21 12:21 | ECHO ---
HEIGHT: 6 ft 0 in WEIGHT: 197 lb 0 oz DATE OF STUDY: 10/21/[address]: Blaire Mclaughlin MD 2-DIMENSIONAL: YES M.MODE: YES DOPPLER: YES COLOR FLOW: YES TDS: PORTABLE: DEFINITY: BUBBLE STUDY: DIAGNOSIS: PULMONARY EMBOLISM CARDIAC HISTORY: CATHERIZATION: NO SURGERY: NO PROSTHETIC VALVE: NO PACEMAKER: NO MEASUREMENTS (cm) DIASTOLIC (NORMALS) SYSTOLIC (NORMALS) IVSd 1.1 (0.6-1.2) LA Diam 3.0 (1.9-4.0) LVEF 56% LVIDd 5.2 (3.5-5.7) LVIDs 3.6 (2.0-3.5) %FS 29% LVPWd 1.2 (0.6-1.2) Ao Diam 2.9 (2.0-3.7) 2 DIMENSIONAL ASSESSMENT: RIGHT ATRIUM: NORMAL LEFT ATRIUM: NORMAL RIGHT VENTRICLE: NORMAL LEFT VENTRICLE: NORMAL TRICUSPID VALVE: NORMAL MITRAL VALVE: NORMAL PULMONIC VALVE: NORMAL AORTIC VALVE: NORMAL PERICARDIAL EFFUSION: NONE AORTIC ROOT: NORMAL LEFT VENTRICULAR WALL MOTION: NORMAL DOPPLER/COLOR FLOW: MILD TRICUSPID REGURGITATION COMMENTS: MILD TRICUSPID REGURGITATION. NORMAL RIGHT SYSTOLIC PRESSURE. NORMAL LEFT VENTRICULAR SIZE AND FUNCTION. NO WALL MOTION ABNORMALITY. NO EFFUSION. TECHNOLOGIST: CAN VARGAS
--- NOTE | 2019-10-21 17:28 | RAD REPORT ---
EXAM DESCRIPTION: CT - Abdomen Pelvis W Contrast - 10/21/2019 4:48 pm CLINICAL HISTORY: FEVER , PAIN COMPARISON: CT abdomen and pelvis April 2018, CT chest October 20, 2019 TECHNIQUE: Biphasic, helical CT imaging of the abdomen and pelvis was performed following 100 ml non -ionic IV contrast. Oral contrast was given. All CT scans are performed using dose optimization technique as appropriate and may include automated exposure control or mA/KV adjustment according to patient size. FINDINGS: No new lung base finding. Patient has known pulmonary embolic disease with stranding in th e lung bases. No pericardial thickening or effusion. The liver, spleen, and pancreas show no suspicious findings. Cholecystectomy clips are present. No bi liary tree dilatation. Symmetric renal function is seen with no hydronephrosis or suspicious renal mass. No pyelonephritis o r acute parenchymal process. No bladder abnormalities. Prostate gland is prominent. No adrenal abnorm alities. Minimal hiatal hernia is present. No acute gastric wall thickening or mass. No acute small bowel find ing. Patient has a tortuous and redundant sigmoid colon. This extends up to the supraumbilical midlin e abdomen. There is no acute diverticulitis present. There is prominent diverticulosis. An acute colo n process is not identifiable. No free air, free fluid or inflammatory stranding. Very small periumbilical hernia is present with no acute finding. Moderately large right inguinal hernia is present with no congested or edematous f at. No bowel involvement at this time. Disc and bony degenerative changes are present. Spinal stenosis is present at L3-4. Foraminal encroac hment present at L3-4, L4-5 and L5-S1. Prominent aortic calcifications are present. Infrarenal aorta dilates to 3.2 cm. No displaced calcifi cation. This is not substantially different from April 2018. Left common iliac artery is dilated to 15 mm. 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 IMPRESSION: Patient has very prominent diverticulosis within a tortuous and redundant sigmoid colon. No mass or diverticulitis seen. No pyelonephritis or acute renal parenchymal process. No urinary bladder abnormality seen. No abnormality seen as a source for fever or acute pain. Additional nonacute findings detailed in the body of the report.
--- NOTE | 2019-10-21 18:40 | P.PN ---
Subjective Date of Service: 10/21/19 Chief Complaint: Pulmonary emboli Subjective: Improving MR. WELLS CAME BACK FROM [place] AFTER A LONG FLIGHT ABOUT 3 WEEKS AGO. HE STARTED TO HAVE DYSPNEA AND REPORTED TO DR. BOONE ON HIS ROUTINE APT TWO DAYS AGO. HE WAS SENT TO ER AND WAS FOUND TO HAVE PE DIFFUSELY. HE ALSO HAS R LEG DVT. HE WAS GIVEN A DOSE OF LOVENOX AND THIS AM I CHANGED IT TO XARELTO BID. I ALSO ORDERED CT ABDOMEN THAT SHOWS NO SIGNS OF CANCER. Review of Systems 10-point ROS is otherwise unremarkable General: Weakness, Malaise Respiratory: Shortness of Breath Physical Examination - Vital Signs Temperature: 98.1 F Blood Pressure: 121/67 Pulse: 69 Respirations: 20 Pulse Ox (%): 93 - Physical Exam General: Mild distress HEENT: Atraumatic, PERRLA, EOMI Neck: Supple, JVD not distended Respiratory: Clear to auscultation bilaterally, Normal air movement Cardiovascular: Regular rate/rhythm, Normal S1 S2 Gastrointestinal: Normal bowel sounds, No tenderness Musculoskeletal: No tenderness Integumentary: No rashes Neurological: Normal speech, Normal tone, Normal affect Lymphatics: No axilla or inguinal lymphadenopathy - Studies Medications List Reviewed: Yes Assessment And Plan - Current Problems (Diagnosis) (1) HTN (hypertension) with goal to be determined Current Visit: Yes Status: Chronic Plan: BP IS STABLE. HE IS FOLLOWED BY DR BOONE PCP. (2) Pulmonary embolism and infarction Current Visit: Yes Status: Acute Plan: PROVOKED PE. NO SIGNS OF SECONDARY FACTORS. XARELTO BID FOR 3 WEEKS FOLLOWED BY XARELTO 20 MG PO DAILY FOR 3-6 MONTHS. PROGNOSIS FAIR. OXYGEN CHECK DAILY. DC IN AM POSSIBLE.
[2019-10-21] MEDS: ATORVASTATIN 80 MG TAB PO SCH (21:04)
[2019-10-21] MEDS: LEVOTHYROXINE SOD 0.05 MG TABLET PO SCH (21:04)
[2019-10-21] MEDS: TAMSULOSIN 0.4 MG SR CAP PO SCH (21:04)
[2019-10-22] MEDS: ENOXAPARIN 100 MG/ML SYR SQ SCH ×2 (08:56→22:01)
[2019-10-22] MEDS: NA CHLORIDE 0.9% 1,000 ML IV SCH ×2 (08:56→18:44)
--- NOTE | 2019-10-22 10:47 | P.PN ---
Subjective Date of Service: 10/22/19 Chief Complaint: Pulmonary emboli Subjective: Improving (Patient is doing well no new complaints still hypoxic) Review of Systems Unremarkable Physical Examination - Vital Signs Temperature: 98.9 F Blood Pressure: 122/60 Pulse: 79 Respirations: 18 Pulse Ox (%): 91 - Physical Exam General: Alert, Oriented x3 Neck: Supple Respiratory: Clear to auscultation bilaterally - Studies Medications List Reviewed: Yes Assessment & Plan - Problems (Diagnosis) (1) Pulmonary embolism and infarction Current Visit: Yes Status: Acute Plan: Patient admitted with DVT pulmonary emboli a he still hypoxic due to monitor change him over to Lovenox for now ambulate start on IV fluids blood pressure is still low echocardiogram no evidence of right ventricular dilatation will review his status tomorrow. All his blood pressure medications for now he may have relative hypotension and hypoxemia which may be any indication for thrombolytics therapy as he continues to remain hypoxic and relatively hypotensive Xarelto discontinued Discharge Plan: Home Plan to discharge in: 48 Hours
--- NOTE | 2019-10-22 14:37 | P.PN ---
Subjective Date of Service: 10/22/19 Chief Complaint: Pulmonary emboli Subjective: Improving MR. WELLS CAME BACK FROM [place] AFTER A LONG FLIGHT ABOUT 3 WEEKS AGO. HE STARTED TO HAVE DYSPNEA AND REPORTED TO DR. BOONE ON HIS ROUTINE APT TWO DAYS AGO. HE WAS SENT TO ER AND WAS FOUND TO HAVE PE DIFFUSELY. HE ALSO HAS R LEG DVT. HE WAS GIVEN A DOSE OF LOVENOX AND THIS AM I CHANGED IT TO XARELTO BID. I ALSO ORDERED CT ABDOMEN THAT SHOWS NO SIGNS OF CANCER. MR MALCOLM IS DOING GREAT. HE IS QUITE ASYMPTOMATIC. HIS OXYGEN SATURATION IS 91% ON RA WHEN I CHECKED THIS AM. DR. MORGAN WANTS TO HOLD HIM MORE DAYS HE HAS LARGE EMBOLIC LOAD. I AM OKAY WITH THAT. HE IS STABLE FOR DISCHARGE BUT WE CAN HOLD HIM IF HE WANTS TO DO SO. Review of Systems 10-point ROS is otherwise unremarkable Physical Examination - Vital Signs Temperature: 98.6 F Blood Pressure: 114/61 Pulse: 79 Respirations: 18 Pulse Ox (%): 95 - Physical Exam General: Alert, In no apparent distress HEENT: Atraumatic, PERRLA, EOMI Neck: Supple, JVD not distended Respiratory: Clear to auscultation bilaterally, Normal air movement Cardiovascular: Regular rate/rhythm, Normal S1 S2 Gastrointestinal: Normal bowel sounds, No tenderness Musculoskeletal: No tenderness Integumentary: No rashes Neurological: Normal speech, Normal tone, Normal affect Lymphatics: No axilla or inguinal lymphadenopathy - Studies Medications List Reviewed: Yes Assessment And Plan - Current Problems (Diagnosis) (1) HTN (hypertension) with goal to be determined Current Visit: Yes Status: Chronic Plan: BP IS STABLE. HE IS FOLLOWED BY DR BOONE PCP. (2) Pulmonary embolism and infarction Current Visit: Yes Status: Acute Plan: PROVOKED PE. NO SIGNS OF SECONDARY FACTORS. XARELTO BID FOR 3 WEEKS FOLLOWED BY XARELTO 20 MG PO DAILY FOR 3-6 MONTHS. PROGNOSIS FAIR. OXYGEN CHECK DAILY. DC IN AM POSSIBLE. DISCHARGE ON HOLD PER DR. MORGAN. HE IS STABLE AND HAS NO HEMODYNAMIC ISSUES.
[2019-10-22] MEDS: TAMSULOSIN 0.4 MG SR CAP PO SCH (22:01)
[2019-10-22] MEDS: LEVOTHYROXINE SOD 0.05 MG TABLET PO SCH (22:02)
[2019-10-22] MEDS: ATORVASTATIN 80 MG TAB PO SCH (22:02)
[2019-10-23] MEDS: NA CHLORIDE 0.9% 1,000 ML IV SCH (06:28)
[2019-10-23 06:30] LABS: Hematocrit 36.1 % (39.6-49.0); MPV 8.6 fL (7.6-11.3); RBC Red Blood Cell Count 4.26 M/uL (4.33-5.43)
[2019-10-23 06:36] LABS: Potassium 3.9 mmol/L (3.5-5.1)
[2019-10-23 07:41] VITALS: O2SAT 93
[2019-10-23] MEDS ORDERED: RIVAROXABAN 15 MG TABLET PO SCH (09:00)
[2019-10-23 09:53] VITALS: TEMP 97.7
--- NOTE | 2019-10-23 10:08 | P.PN ---
Subjective Date of Service: 10/23/19 Chief Complaint: Pulmonary emboli Subjective: Improving (Condition stable patient id ambulating without any shortness of breath or chest pain oxygenation satisfactory) Review of Systems Unremarkable Physical Examination - Vital Signs Temperature: 97.7 F Blood Pressure: 121/67 Pulse: 70 Respirations: 18 Pulse Ox (%): 93 - Physical Exam General: Alert, In no apparent distress, Oriented x3 Respiratory: Clear to auscultation bilaterally Cardiovascular: No edema, Normal pulses - Studies Medications List Reviewed: Yes Assessment & Plan - Problems (Diagnosis) (1) Pulmonary embolism and infarction Current Visit: Yes Status: Acute Plan: Patient admitted with pulmonary emboli is blood pressure is now stable patient is able to ambulate room-air sats 92-93% denies any chest pain cough hemoptysis plan to again ambulate today discharge home we need to hold his blood pressure medications for now patient to take Xarelto 15 mg twice a day for 3 weeks then 20 mg once a day he will need to be anti coagulated for at least 3 months pulmonary embolism induced by recent travel to [place] Discharge Plan: Home
[2019-10-23 13:41] VITALS: BP 119/65
--- NOTE | 2019-10-23 15:50 | P.DS ---
Admission Date: 10/20/19 Discharge Date: 10/23/19 Disposition: ROUTINE DISCHARGE Discharge Condition: FAIR Reason for Admission: Pulmonary emboli - Problems (1) HTN (hypertension) with goal to be determined Status: Chronic (2) Pulmonary embolism and infarction Status: Acute Brief History of Present Illness: MR. MALCOLM HAD PROVOKED PE LIKE DESCRIBED BEFORE. HE WILL BE ON XALRETO FOR 3- [address] MORGAN AND DR. MCLAUGHLIN WILL FU. HIS OXYGEN NOW IS 93% ON RA. HE IS STABLE AT [place]. Vital Signs/Physical Exam: Temp Pulse Resp BP Pulse Ox 97.7 F 74 18 119/65 92 10/23/19 12:00 10/23/19 12:00 10/23/19 12:00 10/23/19 12:00 10/23/19 12:00 Laboratory Data at Discharge: WBC 7.8 K/uL (4.3-10.9) D 10/23/19 05:43 Hgb 12.4 g/dL (13.6-17.9) L 10/23/19 05:43 Hct 36.1 % (39.6-49.0) L 10/23/19 05:43 Plt Count 198 K/uL (152-406) 10/23/19 05:43 PT 12.8 SECONDS (9.5-12.5) H 10/20/19 11:00 INR 1.09 10/20/19 11:00 Sodium 142 mmol/L (136-145) 10/23/19 05:43 Potassium 3.9 mmol/L (3.5-5.1) 10/23/19 05:43 BUN 19 mg/dL (7-18) H 10/23/19 05:43 Creatinine 0.97 mg/dL (0.55-1.3) 10/23/19 05:43 Glucose 107 mg/dL (74-106) H 10/23/19 05:43 Magnesium 2.3 mg/dL (1.8-2.4) 10/20/19 11:00 Total Bilirubin 0.7 mg/dL (0.2-1.0) 10/20/19 11:00 AST 10 U/L (15-37) L 10/20/19 11:00 ALT 21 U/L (12-78) 10/20/19 11:00 Alkaline Phosphatase 118 U/L (45-117) H 10/20/19 11:00 Home Medications: Amlodipine Besylate 1 tab PO BEDTIME 04/18/18 Atorvastatin Calcium [Lipitor] 80 mg PO DAILY 04/18/18 Levothyroxine [Synthroid] 50 mcg PO [id number] 04/18/18 Lisinopril/Hydrochlorothiazide [Lisinopril-Hctz 20-12.5 mg Tab] 1 tab PO DAILY 04/18/18 Tamsulosin [Flomax*] 1 cap PO BEDTIME 10/20/19 Rivaroxaban [Xarelto] 15 mg PO BID 21 Days #42 tablet 10/21/19 Rivaroxaban [Xarelto] 20 mg PO DAILY 30 Days #30 tab 10/21/19 New Medications: Rivaroxaban [Xarelto] 20 mg PO DAILY 30 Days #30 tab Rivaroxaban [Xarelto] 15 mg PO BID 21 Days #42 tablet Patient Discharge Instructions: TAKE 15 MG TWICE A DAY FOR 21 DAYS FOLLOWED BY 20 MG ONCE A DAY. SEE DR. MCLAUGHLIN IN ONE WEEK. DR. CERDA IN A WEEK OR SO. Followup: Carlos Cerda MD [ACTIVE - CAN ADMIT] - Blaire Mclaughlin MD [Primary Care Provider] -
== END 2019-10-23 13:59 | disposition home or self-care (01) | DRG 176 ==
LOC: ER 09:54 → ERHOLD 13:39 → 2ND 14:52
PROVIDERS: ADMIT Internal Medicine; ATTEND Internal Medicine
DX: I26.99 Other pulmonary embolism without acute cor pulmonale (principal); I10 Essential (primary) hypertension; E03.9 Hypothyroidism, unspecified; N40.0 Benign prostatic hyperplasia without lower urinary tract symptoms; E78.5 Hyperlipidemia, unspecified; N52.9 Male erectile dysfunction, unspecified
CPT/HCPCS: 36415; 71045; 71275; 74177; 80048; 80076; 83735; 83880; 84484; 85025; 85027; 85379; 85610; 87040; 93005; 93306; 93970; 96372; 99285; J1650; J7030; Q9967

== ENCOUNTER 2021-10-17 17:16 | Emergency (ER) | payer OTHER ==
[2021-10-17] MEDS ORDERED: NA CHLORIDE 0.9% 1,000 ML ONE (17:35)
[2021-10-17] MEDS ORDERED: ONDANSETRON 4 MG/2 ML VIAL ONE (17:39)
[2021-10-17 17:57] LABS: Absolute Lymphocytes (CBC) 2.9 K/uL (0.7-4.9); Basophils % 0.9 % (0-1.3); Hematocrit 41.2 % (39.6-49.0); Lymphocytes % 21.2 % (15.3-44.8); MPV 7.8 fL (7.6-11.3); RBC Red Blood Cell Count 4.69 M/uL (4.33-5.43)
--- NOTE | 2021-10-17 18:09 | RAD REPORT ---
EXAM DESCRIPTION: CT - Head C Spine Cap W Con - 10/17/2021 5:54 pm CLINICAL HISTORY: r/o trauma COMPARISON: No comparisons TECHNIQUE: Axial [address] head images were obtained. Axial [address] cervical spine images were obtaine d with sagittal and coronal reconstruction images reviewed. During dynamic enhancement of 100mL non-i onic contrast, axial 5 mm images of the chest, abdomen and pelvis were obtained. Biphasic technique p erformed of the abdomen and pelvis. All CT scans are performed using dose optimization technique as appropriate and may include automated exposure control or mA/KV adjustment according to patient size. FINDINGS: No intracranial hemorrhage, mass or edema. No midline shift or abnormal fluid collection. No cortical based infarction seen. Moderate atrophy is seen mild chronic ischemic change. Ventricles are in proportion to volume loss. Dense arterial tree calcifications are present. Mastoid air cells a nd paranasal sinuses are clear. No skull fracture. CT cervical spine imaging shows normal height. Normal alignment of the vertebrae. Disc space narrowin g is present from C3-T1. No paraspinal mass or hematoma seen. No fracture or acute cervical spine fin ding. Large posterior endplate spurs are present along with prominent facet joint degenerative change . Prominent degenerative changes are present at the right occipital condyle articulation with the lat eral mass C1. Bilateral bony foraminal encroachment present at C3-4 with posterior endplate spurring from C4 causing spinal stenosis. Significant foraminal stenosis and spinal stenosis changes at C4-5 w ith bilateral foraminal stenosis C5-6. Central canal detail is inherently limited. Concerns for traum atic disc herniation or traumatic cord injury can be further addressed with MR imaging. CT chest shows no pneumothorax, pulmonary contusion or pleural fluid collection. Fibrotic lung change s are present. No mediastinal hematoma and the aorta and pulmonary arteries are unremarkable. No ches t will mass or abnormal axillary finding. No displaced rib fracture or other significant bony finding . CT abdomen and pelvis show no injury to solid abdominal viscera. Gallbladder is absent. No biliary tr ee dilatation. No acute bowel injury seen. There is large stool volume filling but not dilating the c olon. Prominent diverticulosis is present. No free air, free fluid or pneumatosis. Urinary bladder is mostly contracted. Fat filled right inguinal hernia is present. Prominent degenerative change present throughout the thoracic and lumbar spine with no compression fr acture or acute vertebral body finding. Patient has multiple pelvic fractures. There is a sagittally oriented fracture traversing the right s acral ala. Left sacral ala is intact. Moderate SI joint degenerative changes are present. Nondisplace d fracture is present in the anterior column right side acetabulum. There are fractures of the superi or and inferior pubic rami bilaterally. Fracture of each ischial tuberosity present. No femoral head dislocation. No proximal femur fracture identified. No significant vascular finding. IMPRESSION: No significant CT Head finding. Advanced cervical spine degenerative change including multilevel foraminal stenosis and central spina l stenosis. No acute cervical finding identifiable. No significant CT Chest finding. No significant CT abdomen or pelvis soft tissue finding. Multiple pelvic fractures are present. There is a sagittal fracture line traversing the right-side sa cral ala. Anterior column fracture right acetabulum is present and there are bilateral superior and i nferior pubic rami fractures at the pubic symphysis. Fracture of each ischial tuberosity is present. No significant displacement. No proximal femur fracture seen.
--- NOTE | 2021-10-17 18:35 | EDPHYS ---
Physician Documentation [facility] Name: Azam Lee Age: 81 yrs Sex: Male : 1940 Arrival Date: 10/17/2021 Time: 17:18 Bed 3 Private MD: ED Physician Felicia Richardson HPI: 10/17 17:49 This 81 yrs old Male presents to ER via Wheelchair with complaints of Fall Injury. sp3 17:49 [id number] male with a history of hypertension, prior pulmonary embolism sp3 (currently on Xarelto), hyperlipidemia is a trauma alert after he had a mechanical fall when he slipped off a wooden staircase where he was blowing leaves with a leaf blower. Patient confirms that he slipped and landed on his "butt" in his back and slid down 5-6 steps. Patient also hit the back of his head but denies loss of consciousness. Patient currently has a mild headache, back pain, pain in the coccyx. Patient denies neck pain, extremity pain, chest pain, shortness of breath, abdominal pain, nausea, vomiting, diarrhea or any other review of systems at this time. Per triage nurse patient had a mild syncope episode in the waiting room while he was being triaged prior to him being brought back to the room.. Historical: - Allergies: 17:27 No Known Allergies; ss - PMHx: 17:27 High Cholesterol; Hypertension; Hypothyroidism; ss - Immunization history: Last tetanus immunization: unknown. - Social history:: Smoking status: unknown. ROS: 17:51 Constitutional: Negative for fever, chills, and weight loss, Eyes: Negative for injury, sp3 pain, redness, and discharge, Cardiovascular: Negative for chest pain, palpitations, and edema, Respiratory: Negative for shortness of breath, cough, wheezing, and pleuritic chest pain, Abdomen/GI: Negative for abdominal pain, nausea, vomiting, diarrhea, and constipation, Skin: Negative for injury, rash, and discoloration, Endocrine: Negative for neck swelling, polydipsia, polyuria, polyphagia, and marked weight changes. 17:51 MS/extremity: Positive for Please see HPI for positive findings.. 17:51 All other systems are negative. Exam: 17:52 Constitutional: This is a well developed, well nourished patient who is awake, alert, sp3 and in no acute distress. Head/Face: Normocephalic, atraumatic. Eyes: Pupils equal round and reactive to light, extra-ocular motions intact. Lids and lashes normal. Conjunctiva and sclera are non-icteric and not injected. Cornea within normal limits. Periorbital areas with no swelling, redness, or edema. ENT: Nares patent. No nasal discharge, no septal abnormalities noted. External auditory canals are clear. Oropharynx with no redness, swelling, or masses, exudates, or evidence of obstruction, uvula midline. Mucous membranes moist. Neck: Trachea midline, no thyromegaly or masses palpated, and no cervical lymphadenopathy. Supple, full range of motion without nuchal rigidity, or vertebral point tenderness. No Meningismus. Chest/axilla: Normal chest wall appearance and motion. Nontender with no deformity. No lesions are appreciated. Cardiovascular: Regular rate and rhythm with a normal S1 and S2. No gallops, murmurs, or rubs. Normal PMI, no JVD. No pulse deficits. Respiratory: Lungs have equal breath sounds bilaterally, clear to auscultation and percussion. No rales, rhonchi or wheezes noted. No increased work of breathing, no retractions or nasal flaring. Skin: Warm, dry with normal turgor. Normal color with no rashes, no lesions, and no evidence of cellulitis. Neuro: Awake and alert, GCS 15, oriented to person, place, time, and situation. Cranial nerves II-XII grossly intact. Motor strength 5/5 in all extremities. Sensory grossly intact. Cerebellar exam normal. Normal gait. Psych: Awake, alert, with orientation to person, place and time. Behavior, mood, and affect are within normal limits. 17:52 Back: Patient has multiple abrasions diffuse across his mid and lower back. Small area of ecchymoses on the right lower back is noted. No crepitus is noted and no pain on any spinous processes. There is no loss of bowel or bladder control. Patient is distal neurological exam in all 4 extremities are normal including vascular exam. Mentation is also normal.. 18:36 Abdomen/GI: Lower abdominal tenderness noted. There is no blood at the urethral sp3 meatus. Li catheter was placed. Pain on palpation of the lower pelvis was noted.. Vital Signs: 17:36 BP 114 / 54; Pulse 64; Resp 18 S; Pulse Ox 89% on R/A; jd3 17:36 Pulse Ox 95% on 2 lpm NC; jd3 17:36 Temp 97.9(O); tw2 18:33 BP 133 / 67; Pulse 93; Resp 18 S; Pulse Ox 97% on 2 lpm NC; jd3 [place] Coma Score: 17:36 Eye Response: spontaneous(4). Verbal Response: oriented(5). Motor Response: obeys jd3 commands(6). Total: 15. 18:33 Eye Response: spontaneous(4). Verbal Response: oriented(5). Motor Response: obeys jd3 commands(6). Total: 15. Trauma Score (Adult): 17:36 Eye Response: spontaneous(1); Verbal Response: oriented(1); Motor Response: obeys jd3 commands(2); Systolic BP: > 89 mm Hg(4); Respiratory Rate: 10 to 29 per min(4); Carlotta Score: 15; Trauma Score: 12 18:33 Eye Response: spontaneous(1); Verbal Response: oriented(1); Motor Response: obeys jd3 commands(2); Systolic BP: > 89 mm Hg(4); Respiratory Rate: 10 to 29 per min(4); Carlotta Score: 15; Trauma Score: 12 MDM: 17:23 Patient medically screened. 3 17:54 Data reviewed: vital signs, nurses notes. ED course: Patient was brought back to a 3 trauma bay and a trauma alert was called. Primary survey was normal with normal vital signs noted. Secondary survey did not lead to any other physical exam findings other than what is already documented. Patient is off to CT for CT scans of the head, C-spine, chest, abdomen, pelvis. Vital signs hold normal and there are no significant trauma findings, patient will be likely discharged. Otherwise disposition based on findings to appropriate trauma center.. 18:31 ED course: Initially transferred to [facility] who graciously sp3 accepted the patient without a doc to doc secondary to mechanism of injury and description of the fractures. Will arrange transfer and sent patient to [facility].. 10/17 17:40 Order name: Basic Metabolic Panel EDNV 10/17 17:40 Order name: CBC with Automated Diff; Complete Time: 18:16 EDMS 10/17 17:40 Order name: Type and Screen EDMS 10/17 17:24 Order name: Labs collected and sent; Complete Time: 17:25 sp3 10/17 17:24 Order name: EKG; Complete Time: 17:44 sp3 10/17 17:28 Order name: Head C Spine Cap W Con; Complete Time: 18:16 EDMS 10/17 18:36 Order name: PT-INR sp3 Administered Medications: 17:35 Drug: NS 0.9% 1000 ml Route: IV; Rate: 1 bolus; Site: right antecubital; tw2 18:48 Follow up: Response: No adverse reaction; IV Status: Completed infusion; IV Intake: tw2 1000ml 17:44 Drug: Zofran (Ondansetron) 2 mg Route: IVP; Site: right antecubital; tw2 18:48 Follow up: Response: No adverse reaction; Nausea is decreased tw2 19:04 Drug: morphine 4 mg {Note: RASS 0.} Route: IVP; Site: right antecubital; tw2 19:11 Follow up: Response: No adverse reaction; Pain is decreased; RASS: Alert and Calm (0) tw2 Disposition Summary: 10/17/21 18:35 Transfer Ordered Transfer Location: [facility] sp3 Reason: Higher level of care sp3 Condition: Fair sp3 Problem: new sp3 Symptoms: are unchanged sp3 Accepting Physician: Dr. Beach(10/17/21 19:11) tw2 Diagnosis - Bilateral superior and inferior pubic rami fractures, sacral fracture, bilateral sp3 ischial tuberosity fractures, ground-level fall. Discharge Instructions: - Discharge Summary Sheet tw2 Forms: - SBAR form tw2 - Medication Reconciliation Form sp3 Signatures: Dispatcher [employer] EDMS Blossom Lucas RN RN ss Wise, Tara, RN RN tw2 Reginald Hernandez RN RN jd3 Patel, Setul, MD MD sp3 Corrections: (The following items were deleted from the chart) 17:46 17:44 TYPE AND SCREEN+BB.LAB.BRZ ordered. EDMS EDMS 17:49 17:44 Head C Spine CAP W Con+CT.RAD.BRZ ordered. EDMS EDMS 18:29 17:44 BASIC METABOLIC PANEL+C.LAB.BRZ ordered. EDMS EDMS 18 17:44 CBC+H.LAB.BRZ ordered. EDMS EDMS 19:11 18:35 Dr. Beach sp3 tw2
--- NOTE | 2021-10-17 18:35 | ER ---
Nurse's Notes [facility] Name: Azam Lee Age: 81 yrs Sex: Male : 1940 Arrival Date: 10/17/2021 Time: 17:18 Bed 3 Private MD: Diagnosis: Bilateral superior and inferior pubic rami fractures, sacral fracture, bilateral ischial tuberosity fractures, ground-level fall. Presentation: 10/17 17:17 Chief complaint: Patient states: Mechanical fall down approximately half a flight of ss steps 30 minutes ago. Pt denies LOC, c/o pelvic pain. Syncopal episode noted when patient got into wheelchair after exiting vehicle in front of ED. Care prior to arrival: None. Mechanism of Injury: Fall down 6 steps. Trauma event details: Injury occurred in the [facility], Injury occurred: at home. Injury occurred: October 17, 2021 Injury occurred at: 16:45. 17:17 Acuity: GERALDO 2 ss 17:17 Method Of Arrival: Wheelchair ss 17:26 Coronavirus screen: Client denies travel out of the [place] in the last 14 days. Ebola ss Screen: Patient denies exposure to infectious person. Patient denies travel to an Ebola-affected area in the 21 days before illness onset. Initial Sepsis Screen: Does the patient meet any 2 criteria? No. Patient's initial sepsis screen is negative. Does the patient have a suspected source of infection? No. Patient's initial sepsis screen is negative. Risk Assessment: Do you want to hurt yourself or someone else? Patient reports no desire to harm self or others. Onset of symptoms was October 17, 2021. Trauma Activation: Alert Physician: ED Physician; Name: ; Notified At: ; Arrived At: Physician: General Surgeon; Name: ; Notified At: ; Arrived At: Physician: Radiology; Name: ; Notified At: ; Arrived At: Physician: Respiratory; Name: ; Notified At: ; Arrived At: Physician: Lab; Name: ; Notified At: ; Arrived At: Historical: - Allergies: 17:27 No Known Allergies; ss - PMHx: 17:27 High Cholesterol; Hypertension; Hypothyroidism; ss - Immunization history: Last tetanus immunization: unknown. - Social history:: Smoking status: unknown. Screenin:34 Abuse screen: Denies threats or abuse. Tuberculosis screening: No symptoms or risk jd3 factors identified. 17:37 Nutritional screening: No deficits noted. Fall Risk Fall in past 12 months (25 points). jd3 IV access (20 points). Gait- Weak (10 pts.). Total Burr Fall Scale indicates High Risk Score (45 or more points). Fall prevention measures have been instituted. Side Rails Up X 2 Placed Close to Nursing Station Frequent Obs/Assessments Occuring Family Present and informed to notify staff if the need to leave the bedside. Primary Survey: 17:32 NO uncontrolled hemorrhage observed. A: The patient is alert. Airway: patent, Oxygen jd3 via nasal cannula at 2 liters per minute. Oral cavity: clear, Trachea midline. Breathing/Chest: Respiratory pattern: regular, Respiratory effort: spontaneous, unlabored, Breath sounds: clear, bilaterally. Chest inspection: symmetrical rise and fall of the chest. Circulation: Cardiac rhythm: sinus rhythm Heart tones present. Pulses: palpable right radial artery, right dorsalis pedis artery, left radial artery and left dorsalis pedis artery. Skin color: pink, Skin temperature: warm. Disability Alert. Exposure/Environment: All clothing and personal items were removed. Forensic evidence collection is not deemed to be indicated at this time. Items placed in patient belonging bag. There is no evidence of uncontrolled external bleeding. No obvious injuries are noted at this time. A warming method has been applied: A warm blanket has been provided to the patient. 18:32 Reassessment Airway Airway Patent Breathing/Chest Respiratory pattern Regular tw2 Respiratory effort Spontaneous Unlabored Breath sounds Clear Chest inspection Symmetrical Circulation Heart tones Present Disability Alert. Secondary Survey: 17:32 HEENT: No deficits noted. Gastrointestinal: Abdomen is soft, non-distended, Bowel jd3 sounds present in all quadrants. Palpation No deficit noted. : No signs and/or symptoms were reported regarding the genitourinary system. Musculoskeletal: Circulation, motion, and sensation intact. Range of motion: intact in all extremities. pt reports discomfort in his hips when standing and moving around. no reports of pain or discomfort on palpation. Assessment: 17:34 General: Appears in no apparent distress. comfortable, Behavior is calm, cooperative, jd3 appropriate for age. Pain: Complains of pain in pelvis Quality of pain is described as aching, Aggravated by increased activity, weight bearing. Neuro: Level of Consciousness is awake, alert, obeys commands, Oriented to person, place, time, situation. EENT: No signs and/or symptoms were reported regarding the EENT system. Cardiovascular: Heart tones S1 S2 present Capillary refill < 3 seconds Patient's skin is warm and dry. Rhythm is regular. Respiratory: Airway is patent Respiratory effort is even, unlabored, Respiratory pattern is regular, symmetrical, Breath sounds are clear bilaterally. Denies cough, shortness of breath. GI: Abdomen is round non-distended, Bowel sounds present X 4 quads. Abd is soft and non tender X 4 quads. Reports nausea. : No signs and/or symptoms were reported regarding the genitourinary system. Derm: Skin is intact, Skin is dry, Skin is normal, Skin temperature is warm. Musculoskeletal: Circulation, motion, and sensation intact. Range of motion: intact in all extremities, Reports pt reports discomfort in his hips when standing and moving around. no reports of pain or discomfort on palpation. 17:40 Reassessment: pt c/o nauseousness. provider notified. medicated as ordered. tw2 18:47 Reassessment: Patient appears in no apparent distress at this time. Patient and/or tw2 family updated on plan of care and expected duration. Pain level reassessed. Patient is alert, oriented x 3, equal unlabored respirations, skin warm/dry/pink. 19:10 Reassessment: Patient appears in no apparent distress at this time. Patient and/or tw2 family updated on plan of care and expected duration. Pain level reassessed. Patient is alert, oriented x 3, equal unlabored respirations, skin warm/dry/pink. Vital Signs: 17:36 BP 114 / 54; Pulse 64; Resp 18 S; Pulse Ox 89% on R/A; jd3 17:36 Pulse Ox 95% on 2 lpm NC; jd3 17:36 Temp 97.9(O); tw2 18:33 BP 133 / 67; Pulse 93; Resp 18 S; Pulse Ox 97% on 2 lpm NC; jd3 [place] Coma Score: 17:36 Eye Response: spontaneous(4). Verbal Response: oriented(5). Motor Response: obeys jd3 commands(6). Total: 15. 18:33 Eye Response: spontaneous(4). Verbal Response: oriented(5). Motor Response: obeys jd3 commands(6). Total: 15. Trauma Score (Adult): 17:36 Eye Response: spontaneous(1); Verbal Response: oriented(1); Motor Response: obeys jd3 commands(2); Systolic BP: > 89 mm Hg(4); Respiratory Rate: 10 to 29 per min(4); Carlotta Score: 15; Trauma Score: 12 18:33 Eye Response: spontaneous(1); Verbal Response: oriented(1); Motor Response: obeys jd3 commands(2); Systolic BP: > 89 mm Hg(4); Respiratory Rate: 10 to 29 per min(4); Carlotat Score: 15; Trauma Score: 12 ED Course: 17:18 Patient arrived in ED. tw2 17:23 Felicia Richardson MD is Attending Physician. sp3 17:25 Smitha Waggoner RN is Primary Nurse. tw2 17:25 Inserted saline lock: 20 gauge in right antecubital area, using aseptic technique. tw2 Blood collected. 17:26 Triage completed. ss 17:27 Arm band placed on right wrist. ss 17:36 Patient has correct armband on for positive identification. Placed in gown. Bed in low jd3 position. Call light in reach. Side rails up X2. Adult w/ patient. engine monitor on. Pulse ox on. NIBP on. 17:36 Oxygen administration via nasal cannula \T\ 2L/min Response to oxygen therapy: symptoms jd3 improved. Thermoregulation: warm blanket given to patient. 17:54 Head C Spine Cap W Con In Process Unspecified. EDMS 18:28 Li cath inserted, using sterile technique, 18 Fr., by curator natural history museum, balloon inflated, to tw2 gravity drainage, other pt tolerated well. no blood noted at meatus. I served as medicaid service coordinator for [employer]. Dr. Richardson at bedside assessing for blood as well. 18:32 initiated transfer to [facility], pt accepted in transfer by Dr Beach, admin approval bd given by Laine Saleh. 18:40 Report given to ANGIE Foy at [facility]. tw2 19:10 No provider procedures requiring assistance completed. Patient transferred, IV remains tw2 in place. Administered Medications: 17:35 Drug: NS 0.9% 1000 ml Route: IV; Rate: 1 bolus; Site: right antecubital; tw2 18:48 Follow up: Response: No adverse reaction; IV Status: Completed infusion; IV Intake: tw2 1000ml 17:44 Drug: Zofran (Ondansetron) 2 mg Route: IVP; Site: right antecubital; tw2 18:48 Follow up: Response: No adverse reaction; Nausea is decreased tw2 19:04 Drug: morphine 4 mg {Note: RASS 0.} Route: IVP; Site: right antecubital; tw2 19:11 Follow up: Response: No adverse reaction; Pain is decreased; RASS: Alert and Calm (0) tw2 Intake: 18:48 IV: 1000ml; Total: 1000ml. tw2 Output: 19:10 Urine: 300ml (Li); Total: 300ml. tw2 Outcome: 18:35 ER care complete, transfer ordered by . sp3 19:10 Transferred by ground EMS to [facility]. tw2 19:10 Condition: stable 19:10 Instructed on the need for transfer. 19:10 Patient's length of stay was not longer than 2 hours. tw2 19:11 Patient left the ED. tw2 Signatures: Dispatcher [employer] EDMS Whit Watters Shelby, RN RN ss Wise, Tara, RN RN tw2 Reginald Hernandez RN RN jd3 Patel, Setul, MD MD sp3 Corrections: (The following items were deleted from the chart) 17:35 17:32 pt reports discomfort in his hips when standing and moving around. no reports of jd3 pain or discomfort on palpation jd3 17:35 17:34 Musculoskeletal: Circulation, motion, and sensation intact. Range of motion: jd3 intact in all extremities, jd3
[2021-10-17 18:44] LABS: Protime INR 1.08
[2021-10-17 18:48] LABS: Potassium 3.7 mmol/L (3.5-5.1)
[2021-10-17] MEDS ORDERED: MORPHINE 4 MG/ML SYR ONE (19:03)
[2021-10-17 19:20] VITALS: TEMP 97.9
[2021-10-17 19:22] VITALS: BP 133/67; O2SAT 97
== END 2021-10-17 19:11 | disposition short-term general hospital (02) ==
LOC: ER 17:16
DX: S32.512A Fracture of superior rim of left pubis, initial encounter for closed fracture (principal); S32.511A Fracture of superior rim of right pubis, initial encounter for closed fracture; S32.602A Unspecified fracture of left ischium, initial encounter for closed fracture; S32.601A Unspecified fracture of right ischium, initial encounter for closed fracture; W01.0XXA Fall on same level from slipping, tripping and stumbling without subsequent striking against object, initial encounter; I10 Essential (primary) hypertension
CPT/HCPCS: 96361; 93005; 85025; 80048; 36415; 86900; 86850; 85610; 82565; 86901; 70450; 72125; 71260; 74177; 51702; 96375; 96374; 99285; Q9967; J7030; J2405

== ENCOUNTER 2022-08-26 11:17 | Emergency (ER) | payer OTHER ==
--- OUTSIDE RECORDS SUMMARY | 2022-08-26 11:20 | XMS REPORT | Continuity of Care Document ---
:1940 Author Organization [facility] t Address [address] [place] [address] Care Team Providers Name Role Phone Arnoldo, Nitinjuan manuel Jorge Primary Care Physician ASAEL NIÑO JR Attending Clinician Unavailable JERONIMO MENESES Attending Clinician Unavailable Yolie Bragg APRN Attending Clinician Payers Payer Name Policy Type Policy Number Effective Date Expiration Date S marion [employer] MEDICARE [id number] 2013 2013 O 00:00:00 00:00:00 Problems Condition Condition Condition Status Onset Resolution Last Treating Co mments Source Name Details Category Date Date Treatment Clinician Date Benign Benign Disease Active [facility] prostatic prostatic -17 [facility] th hyperplasi hyperplasi 00:00: a without a without 00 urinary urinary obstructio obstructio n n Hypertensi Hypertensi Disease Active [facility] on with on with 17 Health goal to be goal to be 00:00: determined determined 00 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 Social History Social Habit Start Date Stop Date Quantity Comments Source History of tobacco [facility]oker [facility] Exposure to Not sure [facility] SARS-CoV-2 (event) Tobacco use and 2022-01-01 2022-01-01 Smokeless tobacco [facility] exposure 00:00:00 00:00:00 non-user Alcohol intake 2022-01-01 2022-01-01 .14 /d [facility] 00:00:00 00:00:00 Sex Assigned At [birth year] [facility] 00:00:00 00:00:00 Smoking Status Start Date Stop Date Source Ex-smoker 2022-01-01 00:00:00 2022-01-01 00:00:[facility] Ordered Filled Start Stop Current Ordering Indication Dosage Frequency Signature Comments Components Source Medication Medication Date Date Medication? Clinician (SIG) Name Name No known No No known [facility] medications 3-17 medication He alth 15:55: s 21 Vital Signs Vital Name Observation Time Observation Value Comments Source Systolic blood pressure 2022-01-01 17:00:00 121 mm[Hg] [facility] Diastolic blood pressure 2022-01-01 17:00:00 76 mm[Hg] [facility] Heart rate 2022-01-01 17:00:00 74 /min [facility] Body temperature 2022-01-01 17:00:00 36.61 Claudia [facility] Body height 2022-01-01 17:00:00 [facility]9 [facility] in 2022-01-01 17:00:00 99 /min [facility] Arterial blood by Pulse oximetry Systolic blood pressure 2022-01-01 17:00:00 121 mm[Hg] [facility] Diastolic blood pressure 2022-01-01 17:00:00 76 mm[Hg] [facility] Heart rate 2022-01-01 17:00:00 74 /min [facility] Body temperature 2022-01-01 17:00:00 36.61 Claudia [facility] Body height 2022-01-01 17:00:00 182.9 cm [facility] Oxygen saturation in 2022-01-01 17:00:00 99 /min [facility] Arterial blood by Pulse oximetry Procedures Procedure Date / Time Performed Performing Clinician [facility] e COMPREHENSIVE METABOLIC PANEL 2022-01-01 17:55:00 Jeronimo Meneses [facility] Encounters Start End Encounter Admission Attending Care Care Encounter Source Date/Time Date/Time Type Type Clinicians Facility Department ID 2022-01-17 Outpatient SALINAS HALEY, [facility] [id number] [place] 01:04:26 [facility] 2022-01-12 Outpatient [facility] [id number] [place] 01:06:04 [facility] 2022-01-01 Outpatient JERONIMO MENESES [facility] [id number] [place] 11:40:48 [facility] 2021-12-06 Outpatient [facility] [id number] [place] 15:08:58 [facility] 2021-11-27 Outpatient JERONIMO MENESES [facility] [id number] [place] 12:08:41 [facility] 2021-11-22 Outpatient [facility] [id number] [place] 12:00:04 [facility] 2021-10-30 Outpatient [facility] [id number] [place] 11:56:06 [facility] 2022-07-16 2022-07-16 Outpatient JERONIMO MENESES [facility] [id number] [place] 14:30:00 14:30:00 [facility] 2022-07-02 2022-07-02 Outpatient JERONIMO MENESES [facility] [id number] [place] 11:00:00 11:00:00 [facility] 2022-01-08 2022-01-08 Office CAITLYN Bragg [id number] [place] 10:45:00 11:11:[address] [id number] Health [id number] 1 2022-01-01 2022-01-01 Office SudheerJeronimo CAITLYN 6400 [id number] [place] 11:00:00 12:10:[address] [id number] Health [id number] 2021-11-27 2021-11-27 Office CAITLYN Bragg [id number] [place] 11:45:00 11:45:[address] [id number] Health [id number] 2021-10-30 2021-10-30 Office CAITLYN BRAGG [id number] [place] 12:00:00 12:15:00 Visit YOLIE [facility] [id number] Health [id number] Results Test Description Test Time Test Comments Results Result Comments Source Comprehensive metabolic panel 2022-01-02 14:00:00 Test Item Value Reference Range Interpretation Comme nts GLUCOSE (test code = 117 mg/dL 65-139 ? ? ? Non-fasting 2345-7) reference inter dewayne UREA NITROGEN (BUN) 16 mg/dL 7-25 (test code = 3094-0) CREATININE (test code = 1 mg/dL 0.70-1.11 For patients >49 years of 2160-0) age, the refere nce limitfor Creati nine is approximately 1 3% higher for peopleident ified as -Natalie n. eGFR NON- See_Comment [Automated message] The MAURITIAN (test code = system which generated 43813-7) this result tra nsmitted reference range : > OR = 60 mL/min/1.73m 2. The reference range was not used to interpr et this result as normal/abnormal . eGFR See_Comment [Auto mated message] The (test code = 86991-2) system which generated this result tra nsmitted reference range : > OR = 60 mL/min/1.73m 2. The reference range was not used to interpr et this result as normal/abnormal . BUN/CREATININE RATIO NOT APPLICABLE See_Comment [Aut omated message] The (test code = 3097-3) system which generated this result tra nsmitted reference range : 6 - 22 (calc). The ref erence range was not u sed to interpret this result as normal/abnormal . SODIUM (test code = 145 mmol/L 354-359 3565-2) POTASSIUM (test code = 4.1 mmol/L 3.5-5.3 2823-3) CHLORIDE (test code = 106 mmol/L 98-110 5-0) CARBON DIOXIDE (test 30 mmol/L 20-32 code = 2027-9) CALCIUM (test code = 9.4 mg/dL 8.6-10.3 72314-3) PROTEIN, TOTAL (test 6.3 g/dL 6.1-8.1 code = 2885-2) ALBUMIN (test code = 4.1 g/dL 3.6-5.1 1751-7) GLOBULIN (test code = See_Comment [Auto mated message] The 09391-9) system which ge nerated this result tra nsmitted reference range : 1.9 - 3.7 g/dL (calc) . The reference range was not used to interpr et this result as normal/abnormal . ALBUMIN/GLOBULIN RATIO See_Comment [Aut omated message] The (test code = 1759-0) system which generated this result tra nsmitted reference range : 1.0 - 2.5 (calc). The reference range was not u sed to interpret this result as normal/abnormal . BILIRUBIN, TOTAL (test 0.5 mg/dL 0.2-1.2 code = 1975-2) ALKALINE PHOSPHATASE 168 U/L 35-144 H (test code = 6768-6) AST (test code = 1920-8) 13 U/L 10-35 ALT (test code = 1742-6) 16 U/L 9-46 RE PORT COMMENT:FASTING :NO RAC (test code = RAC) Performing Organization Information: ? ?Site ID: [id number] ? ?Name: [employer] [place] ? ?Address: [address] [place] [id number] ? ?Director: QASIM SALCEDO MD Lab Interpretation (test Abnormal code = 37378-7) [facility]
[2022-08-26] MEDS ORDERED: LIDOCAINE 4% PATCH ONE (12:07)
[2022-08-26 12:20] LABS: Urine Blood Negative (Negative); Urine Glucose Negative (Negative); Urine Protein Negative (Negative)
--- NOTE | 2022-08-26 12:58 | RAD REPORT ---
EXAM DESCRIPTION: CT - Stone Protocol - 08/26/2022 12:43 pm CLINICAL HISTORY: Abdominal pain. COMPARISON: 2018 TECHNIQUE: Computed axial tomography of the abdomen pelvis was obtained without oral or IV contrast. Lack of IV and oral contrast limits evaluation of solid organs, appendix, bowel, and vessels. Casanova l reformatted images were obtained and reviewed. All CT scans are performed using dose optimization technique as appropriate and may include automated exposure control or mA/KV adjustment according to patient size. FINDINGS: A renal calculus is not seen. An ureteral calculus is not noted. A bladder calculus is not present. Left renal cysts. Cholecystectomy Chronic interstitial lung opacities. The liver, spleen, pancreas and adrenals appear grossly normal Diverticula stem from the colon without evidence diverticulitis. Marked prostatic enlargement. Mild bladder distention. Moderate right inguinal hernia contains a small portion of ileum. Small left inguinal hernia Posttraumatic changes involving the pelvis. Infrarenal abdominal aortic aneurysm AP diameter 3.4 centimeters. 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 Small hiatal hernia IMPRESSION: Negative for a genitourinary calculus Moderate right inguinal hernia contains a small portion of ileum Infrarenal abdominal aortic aneurysm AP diameter 3.4 centimeters. 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 A marked amount of calcified plaque is present within right common carotid artery
[2022-08-26] MEDS ORDERED: CODEINE 30MG/APAP 300MG TAB ONE (13:41)
--- NOTE | 2022-08-26 14:26 | EDPHYS ---
Physician Documentation [facility] Name: Azam Lee Age: 82 yrs Sex: Male : 1940 Arrival Date: 08/26/2022 Time: 11:20 Bed 16 Private MD: Blaire Mclaughlin F ED Physician Flaco Ballard HPI: 08/26 11:49 This 82 yrs old Male presents to ER via Ambulatory with complaints of Back Pain. pm1 11:49 The patient presents with pain that is acute. The symptoms are located in the left low pm1 back. Onset: The symptoms/episode began/occurred 11 day(s) ago. The pain does not radiate. Associated signs and symptoms: Pertinent negatives: abdominal pain, chest pain, dysuria, fever, nausea, vomiting, Radiating pain. The problem was sustained standing up from bed. Modifying factors: the patient symptoms are aggravated by bending, movement. Severity of symptoms: in the emergency department the symptoms are unchanged. The patient has not experienced similar symptoms in the past. The patient has not recently seen a physician. Historical: - Allergies: 11:30 No Known Allergies; ll1 - PMHx: 11:30 High Cholesterol; Hypertension; Hypothyroidism; ll1 - PSHx: 11:33 pelvic SX; ll1 - Immunization history:: Client reports receiving the 2nd dose of the Covid vaccine. - Social history:: Smoking status: Patient denies any tobacco usage or history of. ROS: 11:49 Constitutional: Negative for fever, chills, and weight loss, Cardiovascular: Negative pm1 for chest pain, palpitations, and edema, Respiratory: Negative for shortness of breath, cough, wheezing, and pleuritic chest pain, Abdomen/GI: Negative for abdominal pain, nausea, vomiting, diarrhea, and constipation. 11:49 MS/Extremity: Negative for injury and deformity, Skin: Negative for injury, rash, and discoloration, Neuro: Negative for headache, weakness, numbness, tingling, and seizure. 11:49 Back: Positive for pain with movement, of the left low back. 11:49 All other systems are negative. Exam: 11:49 Constitutional: This is a well developed, well nourished patient who is awake, alert, pm1 and in no acute distress. Head/Face: Normocephalic, atraumatic. 11:49 Skin: Warm, dry with normal turgor. Normal color with no rashes, no lesions, and no evidence of cellulitis. MS/ Extremity: Pulses equal, no cyanosis. Neurovascular intact. Full, normal range of motion. 11:49 Cardiovascular: Exam negative for acute changes, Rate: normal, Rhythm: regular, Pulses: no pulse deficits are appreciated, Heart sounds: normal. 11:49 Respiratory: Exam negative for acute changes, respiratory distress, shortness of breath, Breath sounds: are clear throughout. 11:49 Abdomen/GI: Inspection: abdomen appears normal, Palpation: abdomen is soft and non-tender, in all quadrants. 11:49 Back: vertebral tenderness, is not appreciated, muscle spasm, is appreciated in the left low back. 11:49 Neuro: Exam negative for acute changes, Orientation: is normal, Mentation: is normal, Motor: is normal, moves all fours. Vital Signs: 11:30 BP 161 / 77; Pulse 77; Resp 17; Temp 97.2; Pulse Ox 97% ; Weight 83.91 kg; Height 6 ft. ll1 0 in. (182.88 cm); Pain 8/10; 12:00 BP 155 / 68; ko1 14:58 BP 144 / 72; Pulse 74; Resp 18; ko1 11:30 Body Mass Index 25.09 (83.91 kg, 182.88 cm) ll1 MDM: 11:40 Patient medically screened. pm1 13:30 Counseling: I had a detailed discussion with the patient and/or guardian regarding: the pm1 historical points, exam findings, and any diagnostic results supporting the discharge/admit diagnosis, radiology results, Patient reports known AAA. Will contact his CV surgeon for baseline size of CT imaging he received last month. He was told that it was stable at that time and will have monitoring annually. 14:04 Data reviewed: radiologic studies, CT scan, comparison 07/16/2022 CTA abdomen and pm1 pelvis with contrast that was compared to 10/17/2021 CT shows stable infrarenal abdominal aortic aneurysm measuring up to 3.4 and right common iliac artery aneurysm 2.8 cm. No change in size compared to CT today. Pain appears to be musculoskeletal in nature. No abdominal pain or radiation of pain. Pain is reproducible with palpation to left sided muscle spasms and with movement. 14:04 ED course: CT results faxed from Reyna with [facility] CV surgery team. pm1 14:25 ED course: Patient pain improved with codeine given in the ER. Will discharge the pm1 patient home with codeine and lidocaine patches. 08/26 12:20 Order name: Urine Dipstick-Ancillary; Complete Time: 12:23 EDMS 08/26 11:49 Order name: Urine Dipstick-Ancillary (obtain specimen); Complete Time: 12:19 pm1 08/26 12:33 Order name: Stone Protocol; Complete Time: 13:08 EDMS Administered Medications: 12:08 Drug: Lidoderm Patch 5 % (700 mg/patch) 1 patches Route: Topical; Site: affected area; ko1 13:42 Drug: Tylenol #3 (300 mg-30 mg) 2 tabs Route: PO; ko1 Disposition Summary: 08/26/22 14:26 Discharge Ordered Location: Home pm1 Problem: new pm1 Symptoms: have improved pm1 Condition: Stable pm1 Diagnosis - Strain of muscle, fascia and tendon of lower back pm1 Followup: pm1 - With: Emergency Department - When: As needed - Reason: Worsening of condition Followup: pm1 - With: Private Physician - When: 2 - 3 days - Reason: Recheck today's complaints, Continuance of care, Re-evaluation by your physician Discharge Instructions: - Discharge Summary Sheet pm1 - Acute Back Pain, Adult pm1 - Muscle Strain pm1 Forms: - Medication Reconciliation Form pm1 - Thank You Letter pm1 - Antibiotic Education pm1 - Prescription Opioid Use pm1 Prescriptions: - Lidoderm 5 % Topical adhesive patch,medicated - apply 1 patch by TRANSDERMAL route once daily As needed 12 hours on and 12 pm1 hours off in a 24 hour period; 30 patch; Refills: 0, Product Selection Permitted - Tylenol-Codeine #3 300 mg-30 mg Oral - take 2 tablet by ORAL route every 6 hours As needed; 20 tablet; Refills: 0, pm1 Product Selection Permitted Signatures: Dispatcher [employer] EDMS Payam Sethi NP [employer] pm1 Kimberly Rodriguez RN RN ll1 Ally Neal RN RN ko1
--- NOTE | 2022-08-26 14:26 | ER ---
Nurse's Notes [facility] Name: Azam Lee Age: 82 yrs Sex: Male : 1940 Arrival Date: 08/26/2022 Time: 11:20 Bed 16 Private MD: Blaire Mclaughlin F Diagnosis: Strain of muscle, fascia and tendon of lower back Presentation: 08/26 11:30 Chief complaint: Patient states: L back pain for 11 days. No fever. Coronavirus screen: ll1 Vaccine status: Patient reports receiving the 2nd dose of the covid vaccine. Client denies travel out of the [place] in the last 14 days. At this time, the client does not indicate any symptoms associated with coronavirus-19. Ebola Screen: Patient denies travel to an Ebola-affected area in the 21 days before illness onset. Initial Sepsis Screen: Does the patient meet any 2 criteria? No. Patient's initial sepsis screen is negative. Does the patient have a suspected source of infection? No. Patient's initial sepsis screen is negative. Risk Assessment: Do you want to hurt yourself or someone else? Patient reports no desire to harm self or others. Onset of symptoms was August 15, 2022. 11:30 Method Of Arrival: Ambulatory ll1 11:30 Acuity: GERALDO 3 ll1 Triage Assessment: 11:39 General: Appears uncomfortable, Behavior is cooperative, appropriate for age. Pain: ll1 Complains of pain in back Quality of pain is described as aching. Musculoskeletal: Reports pain in back. Historical: - Allergies: 11:30 No Known Allergies; ll1 - PMHx: 11:30 High Cholesterol; Hypertension; Hypothyroidism; ll1 - PSHx: 11:33 pelvic SX; ll1 - Immunization history:: Client reports receiving the 2nd dose of the Covid vaccine. - Social history:: Smoking status: Patient denies any tobacco usage or history of. Screenin:00 Abuse screen: Denies threats or abuse. Denies injuries from another. Nutritional ko1 screening: No deficits noted. Tuberculosis screening: No symptoms or risk factors identified. Fall Risk None identified. Assessment: 12:00 General: Appears in no apparent distress. uncomfortable, Behavior is calm, cooperative, ko1 appropriate for age. Pain: Complains of pain in left low back and left mid back. Neuro: No deficits noted. Level of Consciousness is awake, alert, obeys commands, Oriented to person, place, time, situation. Cardiovascular: No deficits noted. Respiratory: No deficits noted. GI: No deficits noted. : No deficits noted. EENT: No deficits noted. Derm: No deficits noted. Musculoskeletal: No deficits noted. Vital Signs: 11:30 BP 161 / 77; Pulse 77; Resp 17; Temp 97.2; Pulse Ox 97% ; Weight 83.91 kg; Height 6 ft. ll1 0 in. (182.88 cm); Pain 8/10; 12:00 BP 155 / 68; ko1 14:58 BP 144 / 72; Pulse 74; Resp 18; ko1 11:30 Body Mass Index 25.09 (83.91 kg, 182.88 cm) ll1 ED Course: 11:20 Patient arrived in ED. rg4 11:20 Blaire Mclaughlin MD is Private Physician. rg4 11:30 Arm band placed on. ll1 11:33 Triage completed. ll1 11:34 Payam Sethi NP is PHCP. pm1 11:34 Flaco Ballard MD is Attending Physician. pm1 11:39 Patient placed in an exam room, on a stretcher. ll1 12:00 Patient has correct armband on for positive identification. Bed in low position. Call ko1 light in reach. Side rails up X 1. 12:02 Ally Neal, ANGIE is Primary Nurse. ko1 12:45 Stone Protocol In Process Unspecified. EDMS 14:58 No provider procedures requiring assistance completed. Patient did not have IV access ko1 during this emergency room visit. Administered Medications: 12:08 Drug: Lidoderm Patch 5 % (700 mg/patch) 1 patches Route: Topical; Site: affected area; ko1 13:42 Drug: Tylenol #3 (300 mg-30 mg) 2 tabs Route: PO; ko1 Medication: 14:58 VIS not applicable for this client. ko1 Outcome: 14:26 Discharge ordered by . pm1 14:58 Discharged to home ambulatory, with family. ko1 14:58 Condition: stable 14:58 Discharge instructions given to patient, family, Instructed on discharge instructions, follow up and referral plans. medication usage, Demonstrated understanding of instructions, follow-up care, medications, Prescriptions given X 2. 15:00 Patient left the ED. ko1 Signatures: Dispatcher [employer] EDMS Payam Sethi, PAULINA [employer]PATCHER pm1 Cassandra Palomo rg4 Kimberly Rodriguez RN RN ll1 Ally Neal RN RN ko1
[2022-08-26 15:04] VITALS: TEMP 97.2; O2SAT 97
[2022-08-26 15:06] VITALS: BP 144/72
== END 2022-08-26 15:00 | disposition home or self-care (01) ==
LOC: ER 11:17
DX: S39.012A Strain of muscle, fascia and tendon of lower back, initial encounter (principal)
CPT/HCPCS: 81003; 76377; 74176; 99283; J2001

== ENCOUNTER 2023-04-29 06:28 | Day surgery (SDC) | payer OTHER ==
[2023-04-24 09:40] LABS: Absolute Lymphocytes (CBC) 1.1 K/uL (0.7-4.9); Hematocrit 42.5 % (39.6-49.0); Lymphocytes % 14.2 % (15.3-44.8); MCV 89.9 fL (80-100); MPV 7.7 fL (7.6-11.3); RBC Red Blood Cell Count 4.73 M/uL (4.33-5.43)
[2023-04-24 09:47] LABS: Potassium 4.1 mEq/L (3.5-5.1)
--- NOTE | 2023-04-24 09:51 | RAD REPORT ---
EXAM DESCRIPTION: RAD - Chest Pa And Lat (2 Views) - 04/24/2023 9:30 am CLINICAL HISTORY: pre op pending hernia repair COMPARISON: Chest Single View dated 10/20/2019; Chest Pa And Lat (2 Views) dated 02/03/2017; CHEST PA AND LAT 2 VIEW dated 04/29/2012; CHEST PA AND LAT 2 VIEW dated 10/03/2009 FINDINGS: Lines: None. Lungs: No evidence of edema or pneumonia. Pleural: No significant pleural effusions or pneumothorax. Cardiac: The heart size is within normal limits. Mediastinum: Within normal limits. Bones: No acute fractures. Other: None IMPRESSION: No acute cardiopulmonary disease.
--- NOTE | 2023-04-24 14:15 | EKG ---
Test Date: 2023-04-24 Test Time: 09:11:13 Clin Tech: KRISTINA MEASUREMENT RESULTS: Intervals: Rate: 74 PA: 180 QRSD: 80 QT: 386 QTc: 428 [place]: P: 67 PA: 180 QRS: 51 T: 12 INTERPRETIVE STATEMENTS: Normal sinus rhythm Normal ECG Compared to ECG 10/17/2021 17:31:45 Incomplete right bundle-branch block no longer present Myocardial infarct finding no longer present Electronically Signed On 04-24-23 14:15:03 CDT by Jon Joya
[2023-04-29] MEDS ORDERED: dexAMETHasone 4 MG/ML VIAL ONE ×3 (07:02→07:28)
[2023-04-29] MEDS ORDERED: ONDANSETRON 4 MG/2 ML VIAL ONE (07:02)
[2023-04-29] MEDS: Ringers Lactate 1,000 ML IV ONE ×2 (07:05→07:20)
[2023-04-29] MEDS ORDERED: LIDOCAINE 2% MPF 5 ML VIAL ONE (07:17)
[2023-04-29] MEDS: BUPIVACAINE 0.5% PF 10 ML VIAL ONE ×2 (07:19→07:51)
[2023-04-29] MEDS: CEFAZOLIN SODIUM 1 GM/VIAL ONE ×3 (07:19→07:43)
[2023-04-29] MEDS ORDERED: ROCURONIUM 50 MG/5 ML VIAL IV ONE (07:20)
[2023-04-29] MEDS ORDERED: propofoL 200 MG/20 ML VIAL IV ONE (07:20)
[2023-04-29] MEDS ORDERED: FENTANYL CITR 100 MCG/2 ML ONE (07:20)
[2023-04-29] MEDS ORDERED: NEOSTIGMINE 1 MG/ML -10 ML VIAL ONE (08:23)
[2023-04-29] MEDS ORDERED: GLYCOPYRROLATE 0.2 MG/ML SYR ONE (08:24)
--- NOTE | 2023-04-29 08:39 | P.OP ---
Date of Service: 04/29/23 Preop diagnosis: Right inguinal hernia Postop diagnosis: Same Procedure performed: Repair of right inguinal hernia Surgeon: Maykel Nava MD Director Of Transportation: HILTON Anderson Estimated blood loss: Minimal Specimen: None Findings: Large direct right inguinal hernia Anesthesia: General Complications: None Drains: None Fluids and blood products: Nonapplicable Disposition: Recovery room Operative note: Patient brought to the OR and placed in the supine position. General anesthesia begun. Patient prepped and draped in usual sterile fashion. Marcaine 0.5% infiltrated in a field block fashion in the right groin. 15 blade used to make a 4 cm oblique incision between the right pubic tubercle and the right anterior iliac superior spine. Subcutaneous tissue divided. Bleeding controlled cautery. Harvey's fascia identified and divided. Aponeurosis of the external abdominal oblique identified and mobilized inferiorly to expose the shelving edge. External ring opened. Cord structures and ilioinguinal nerve identified and retracted appropriately. A large direct inguinal hernia identified. The sac from the cord structures and reduced into the peritoneal cavity. 2-0 Prolene used to reconstruct the new inguinal floor. The repair started at the pubic tubercle and created a new internal ring. Marlex mesh plug placed in the internal ring and secured with VersaTack stapler. Onlay mesh placed on the inguinal floor. This mesh secured medially to the pubic tubercle, superior to the conjoined tendon, inferiorly to the shelving edge and laterally to each other. Ilioinguinal nerve and cord structures placed back in anatomic location. 2-0 Prolene used to close the aponeurosis. 3-0 chromic used to reapproximate Harvey's fascia. And 3-0 chromic used to close skin. Sterile dressing applied. Patient awakened and taken to recovery room in good general condition. CC: Dr. Corrigan's office
[2023-04-29] MEDS ORDERED: HYDROCODONE/APAP 7.5/325 MG TAB PO PRN (08:41)
[2023-04-29 09:16] VITALS: O2SAT 97
[2023-04-29] MEDS ORDERED: HYDROCODONE/APAP 7.5/325 MG TAB ONE (09:49)
[2023-04-29 10:20] VITALS: BP 131/71; TEMP 97.9
== END 2023-04-29 10:15 | disposition home or self-care (01) ==
LOC: OR 06:28
PROVIDERS: ATTEND Surgery
PROC: 0YU50JZ Supplement Right Inguinal Region with Synthetic Substitute, Open Approach (ICD-10-PCS; principal; 2023-04-29 07:30)
DX: K40.90 Unilateral inguinal hernia, without obstruction or gangrene, not specified as recurrent (principal); I10 Essential (primary) hypertension; E07.9 Disorder of thyroid, unspecified; Z79.01 Long term (current) use of anticoagulants; Z79.899 Other long term (current) drug therapy; Z86.718 Personal history of other venous thrombosis and embolism; Z86.711 Personal history of pulmonary embolism; Z80.1 Family history of malignant neoplasm of trachea, bronchus and lung; Z83.6 Family history of other diseases of the respiratory system
CPT/HCPCS: 36415; 71046; 80048; 85025; 93005; J0690; J1100; J2001; J2405; J2704; J2710; J3010; J7120